=== PATIENT | female | born 2005 | race Caucasian/White ===

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

== ENCOUNTER 2023-10-05 05:48 | Emergency (ER) | payer OTHER, SELFPAY ==
[2023-10-05] VITALS (7 sets, daily range): BP systolic 111–137; BP diastolic 58–82; PULSE 73–86; RESP 16–20; TEMP 36.8; O2SAT 98–100
--- NOTE | ~2023-10-05 | CT_ITS ---
EXAMINATION: CT brain wo con DATE: 10/05/2023 06:37 INDICATION: Headache. TECHNIQUE: Computed tomography (CT) of the head was performed without intravenous contrast. The mA wa s adjusted according to patient size. Iterative reconstruction technique was employed. The dose-lengt h product was 605.33 mGy-cm. COMPARISON: None FINDINGS: There is no intracranial hemorrhage, acute infarction, or abnormal intracranial mass lesion . The ventricles are normal in size. There is mild mucosal thickening in the paranasal sinuses. The o rbits are normal. The mastoid air cells are normal. IMPRESSION: 1. Normal brain. Reviewed, dictated and finalized at location A. IMPRESSION: 1. Normal brain.
--- NOTE | 2023-10-05 06:20 | ED.GENADULT ---
HPI - General Adult General Chief complaint: Unspecified <Pete Mazariegos MD - Last Filed: 10/05/23 07:12> Stated complaint: VALENCIA, nausea, right sided numbess <Pete Mazariegos MD - Last Filed: 10/05/23 07:12> Time Seen by Provider: 10/05/23 06:20 <Pete Mazariegos MD - Last Filed: 10/05/23 07:12> History of Present Illness HPI narrative: This is a 18-year-old female with a history of anxiety and depression presenting to the ED with multiple complaints. Today is the 1st day the patient's school year. She woke up at 4:30 a.m. and felt like her right arm was numb in 3rd 4th and 5th digit. It quickly returned to normal. She then developed a sharp pain over her left eye. It is a rapid sharp stabbing. He does not typically get headaches. She also feels nauseous but has not thrown up. Patient became very scared called her family brought her to the hospital evaluation the patient's symptoms are all rapidly improving although she is still nervous. <Pete Mazariegos MD - Last Filed: 10/05/23 07:12> Related Data Home medications: Home Medications Medication Instructions Recorded Confirmed buspirone 15 mg tablet 7.5 mg PO TID 03/04/22 07/03/23 fluoxetine 20 mg capsule 20 mg PO DAILY 03/04/22 07/03/23 <Pete Mazariegos MD - Last Filed: 10/05/23 07:12> Allergies/adverse reactions: Allergies Allergy/AdvReac Type Severity Reaction Status Date / Time No Known Allergies Allergy Verified 10/05/23 06:02 <Pete Mazariegos MD - Last Filed: 10/05/23 07:12> [facility] Past Medical History Medical History: Medical History Anxiety BMI 29.0-29.9,adult Depression Encounter to establish care No pertinent past medical history SOB (shortness of breath) Wheezing <Pete Mazariegos MD - Last Filed: 10/05/23 07:12> Surgical History Surgical History: Surgical History No pertinent past surgical history <Pete Mazariegos MD - Last Filed: 10/05/23 07:12> Family History Family History: Family History Mother Family history non-contributory <Pete Mazariegos MD - Last Filed: 10/05/23 07:12> Social History Social History: Social History Smoking status: Never smoker Alcohol intake: never Substance use: never Substance use type: does not use Living arrangements: dorm student housing Occupation/Education: student Gender identity (if verbalized by the patient): Female Spiritual care concerns: No <Pete Mazariegos MD - Last Filed: 10/05/23 07:12> Exam Narrative: APPEARANCE: Anxious appearing Head: atraumatic. EYES: EOMI, NOSE: Atraumatic NECK: Trachea midline RESPIRATORY: No increased rate of breathing clear to auscultation CARDIOVASCULAR: Patient's heart rate fluctuates throughout the interview from 80-120 ABDOMINAL: Non-distended MUSCULOSKELETAl: No obvious deformities NEURO: Alert. Cranial nerves 2-12 grossly intact. Sensation light touch, motor function cerebellar function intact for 4 extremities. Gait exam was normal. SKIN:: Warm, dry. Normal color PSYCHIATRIC: Normal affect <Pete Mazariegos MD - Last Filed: 10/05/23 07:12> Course Course Emergency Course: Patient was signed out to me pending labs. Doctors Yair had already spoken with her about the rest of her workup. Labs are generally unremarkable without marked abnormalities. I did assess patient at bedside who verifies understanding and is stable for discharge. Note provided given today is first day of 3rd year of college. <Reema Esteves MD - Last Filed: 10/05/23 07:45> Vital Signs Vital signs: Vital Signs Pulse Rate 86 10/05/23 05:55 Respiratory Rate 17 10/05/23 05:55 Blood Pressure 125/80 10/05/23 05:55 Pulse Oximetry 99 10/05/23 05:55
--- NOTE | 2023-10-05 06:22 | ECG_ITS ---
Test Date: 2023-10-05 06:44:54 Measurements Intervals [place] Rate: 85 P: 42 RI: 156 QRS: 30 QRSD: 97 T: 27 QT: 364 QTc: 434 Interpretive Statements SINUS RHYTHM NONSPECIFIC T-WAVE ABNORMALITY ABNORMAL ECG Electronically Signed On 10-05-2023 11:01:01 CDT by Ahsan Chadwick M.D.
[2023-10-05] MEDS: ACETAMINOPHEN 500 MG TABLET 1000 MG PO (06:41)
[2023-10-05] MEDS: diphenhydrAMINE HCl CAP 25 MG CAPSULE PO (06:42)
[2023-10-05] MEDS: PROCHLORPERAZINE EDISYLATE 10 MG/2 ML VIAL IM (06:43)
--- NOTE | 2023-10-05 06:55 | PC.NURSE ---
Compazine IM shot injected into left thigh, not left deltoid.
[2023-10-05 06:58] LABS: Basophils Absolute Auto 0.1 K/mm3 (0.0-0.1); Basophils Percent Auto 0.9 % (0.2-1.2); Eosinophils Absolute Auto 0.5 K/mm3 (0-0.3); Hematocrit 41.3 % (37.0-47.0); Hemoglobin 13.8 g/dL (12.0-15.0); Immature Granulocyte Absolute 0.01 K/mm3 (0.00-0.031); Immature Granulocyte Percent A 0.1 % (0-0.5); Lymphocytes Absolute Auto 3.42 K/mm3 (0.9-3.2); Lymphocytes Percent Auto 44.3 % (18.3-44.2); Mean Corpuscular HGB Conc 33.4 g/dl (32-36); Mean Corpuscular Hemoglobin 30.2 pg (26-34); Mean Corpuscular Volume 90.4 fl (80-100); Mean Platelet Volume 9.5 fl (7.4-10.4); Monocytes Absolute Auto 0.7 K/mm3 (0.1-0.6); Monocytes Percent Auto 9.6 % (2.6-8.5); Neutrophils Percent Auto 39.1 % (45.5-73.1); Platelet Count Result 260 k/mm3 (150-375); Red Blood Count 4.57 M/mm3 (4.2-5.4); Red Cell Distribution Width 12.5 % (11.5-14.5); White Blood Count 7.7 K/mm3 (4.5-10.0)
[2023-10-05 07:11] LABS: Alanine Aminotransferase 21 U/L (6-35); Albumin Level 4.7 g/dL (3.5-5.1); Alkaline Phosphatase 75 U/L (38-126); Anion Gap 12 mmol/L (4-12); Aspartate Amino Transferase 26 U/L (14-36); Bilirubin,Total 0.4 mg/dL (0.2-1.3); Blood Urea Nitrogen 16 mg/dL (7-17); Calcium 9.6 mg/dL (8.4-10.2); Carbon Dioxide 24 mmol/L (22-30); Chloride 102 mmol/L (98-107); Estimated CRCL calculation 107 ml/min; Estimated Glomerular Filt Rate > 60; Glucose 101 mg/dL (65-110); Potassium 3.7 mmol/L (3.4-5.0); Sodium 138 mmol/L (137-145)
== END 2023-10-05 07:51 | disposition home or self-care (01) ==
PROVIDERS: Emergency Provider Emergency Medicine; PCP Family Medicine
DX: R51.9 Headache, unspecified (principal); F43.9 Reaction to severe stress, unspecified; G56.21 Lesion of ulnar nerve, right upper limb; F41.9 Anxiety disorder, unspecified; F32.A Depression, unspecified
CPT/HCPCS: 36415; 70450; 80053; 85025; 93005; 96372; 99284; A9270; J0780

== ENCOUNTER 2024-02-06 11:51 | Emergency (ER) | payer OTHER, SELFPAY ==
--- NOTE | ~2024-02-06 | XR_ITS ---
EXAMINATION: XR chest 2V DATE: 02/06/2024 13:19 INDICATION: Chronic cough. TECHNIQUE: Frontal and lateral views of the chest were obtained. COMPARISON: None. FINDINGS: There is no pneumonia, pleural effusion, or pneumothorax. The heart size is normal. IMPRESSION: 1. No acute cardiopulmonary disease. Reviewed, dictated and finalized at location A. ATIC DIRECTOR
[2024-02-06 12:07] VITALS: BP 125/71; PULSE 117; RESP 18; TEMP 37; O2SAT 99
--- NOTE | 2024-02-06 13:10 | ED_ITS ---
HPI - URI/Sore Throat General Chief Complaint: Upper Respiratory Infection Stated Complaint: cough Source: patient Mode of arrival: ambulatory Limitations: no limitations History of Present Illness HPI Narrative: 18-year-old female presents to [facility] complaints of intermittent chronic nonproductive cough for the past 6 months. Patient states ?every time I get sick, cough gets worse? patient reports that she saw her primary care provider concerning his chronic cough and was referred to pulmonology for asthma but patient never followed through on referral. Patient denies smoking. Patient denies vaping. Patient reports that she has been taking [id number] TheraFlu and cough drops with minimal relief. Patient reports that she is currently taking her last dose of amoxicillin due to recent strep throat diagnosis. MD elicited complaint: cough Onset (ago): month(s) (6) Consistency: intermittent Able to tolerate fluids by mouth: Yes Exacerbating factors: nothing Relieving factors: nothing Related Data Home Medications ?Medication ?Instructions ?Recorded ?Confirmed ?Last Taken ?Type buspirone 15 mg tablet 7.5 mg PO TID 03/04/22 07/03/23 Unknown History fluoxetine 20 mg capsule 20 mg PO DAILY 03/04/22 07/03/23 Unknown History amoxicillin 875 mg tablet mg 02/06/24 Unknown History cariprazine 1.5 mg capsule mg 02/06/24 Unknown History (Vraylar) Allergies Allergy/AdvReac Type Severity Reaction Status Date / Time No Known Allergies Allergy Verified 02/06/24 12:25 Review of Systems Constitutional: Constitutional: Denies fatigue and Denies fever(s) ENT: Denies nasal congestion and Denies sore throat Respiratory: Respiratory: Denies chest congestion, Reports cough, Denies dyspnea and Denies wheezing Gastrointestinal: Gastrointestinal: Denies diarrhea, Denies nausea and Denies vomiting Genitourinary: Genitourinary: Denies dysuria Musculoskeletal: Musculoskeletal: Denies arthralgias and Denies joint swelling Integumentary/Breasts: Skin/Breast: Denies erythema, Denies rash and Denies skin ulcer Neurologic: Denies headache(s) and Denies focal weakness [facility], [facility] Past Medical History Medical History Wheezing SOB (shortness of breath) BMI 29.0-29.9,adult Depression Anxiety Encounter to establish care No pertinent past medical history Surgical History Surgical History No pertinent past surgical history Family History Family History Mother Family history non-contributory Social History Social History Smoking status: Never smoker Alcohol intake: never Substance use: never Substance use type: does not use Living arrangements: dorm student housing Occupation/Education: student Gender identity (if verbalized by the patient): Female Spiritual care concerns: No Comments At time of signature, I agree with nursing past medical, surgical, social and family history. There is no relevant family history pertinent to the presenting complaint. Exam Const: General: healthy appearing and no acute distress Nutritional Appearance: well nourished Orientation/consciousness: patient oriented x3 Limitations: no limitations HENMT: Head: normal to inspection Ears: external ears normal and TM's normal bilaterally Face/Nose/Sinus: Normal external nose present Face and sinus: normal facial exam Mouth: Yes Normal oral and palatal mucosa present Teeth and gingiva: dentition normal Throat: uvula midline Other: 1+ swelling noted to bilateral tonsils. There is no exudate or peritonsillar abscess no Eyes: Conjunctivae: conjunctivae normal Neck: Neck: normal visual inspection Resp: Effort & Inspection: normal respiratory effort and not labored Auscultation: clear to auscultation bilaterally, no crackles, no rales, no rhonchi and no wheezes Cardio: Rate: regular rate Rhythm: regular rhythm Heart sounds: no m urmurs Skin: General skin exam: normal color Rashes: no rashes Wounds: no wounds Neuro: General: patient oriented x3 Speech: normal speech Gait exam (Neuro): Normal gait present Psych: Affect: normal affect Attitude: cooperative Course Course Level of Care: Express Care Visit Vital Signs Vital signs: Vital Signs Temperature 37.0 C 02/06/24 12:07 Pulse Rate 117 H 02/06/24 12:07 Respiratory Rate 18 02/06/24 12:07 Blood Pressure 125/71 02/06/24 12:07 Pulse Oximetry 99 02/06/24 12:07 Oxygen Delivery Room Air 02/06/24 12:07 Temperature 37.0 C 02/06/24 12:07 Pulse Rate 117 H 02/06/24 12:07 Respiratory Rate 18 02/06/24 12:07 Blood Pressure 125/71 02/06/24 12:07 Pulse Oximetry 99 02/06/24 12:07 Oxygen Delivery Room Air 02/06/24 12:07 MDM - URI/Sore Throat MDM Narrative Medical decision making narrative: Lengthy discussion with patient concerning importance of following through with pulmonology referral as given for PCP. Instructed patient to finish out antibiotic as prescribed her PCP. Educated patient to proceed to the emergency room if symptoms worsen. Discussed negative chest x-ray results with patient. Differential Diagnosis Differential diagnosis: Likely otitis media, sinusitis and viral infection Imaging Data Radiologist's impression: Geeta David 18 F 2005 Allergy/Adv: [place] [address] XRay Report Signed Patient: Geeta David : 2005 MR#: [id number] Age: 18 Acct:[id number] Loc: [facility] ADM Date: 02/06/[address]: Ordering Physician: Randa Almazan APRN Date of Service: 02/06/24 Procedure(s): XR chest 2V Accession Number(s): [id number] cc: Randa Almazan APRN; UNKNOWN,DOCTOR~ EXAMINATION: XR chest 2V DATE: 02/06/2024 13:19 INDICATION: Chronic cough. TECHNIQUE: Frontal and lateral views of the chest were obtained. COMPARISON: None. FINDINGS: There is no pneumonia, pleural effusion, or pneumothorax. The heart size is normal. IMPRESSION: 1. No acute cardiopulmonary disease. Reviewed, dictated and finalized at location A. R OPERATOR Dictated By: Matt Sotelo MD 02/06/24 1322 Signed By: <Electronically signed by Matt Sotelo MD in [place]> 02/06/24 1323 Critical Care Time Critical Care Time Critical Care Time: No Discharge Plan Discharge Clinical Impression: Chronic cough Patient Disposition: Home, Self-Care Condition: Stable Instructions: Chronic Cough (ED) Additional Instructions: Follow-up with primary care provider concerning chronic cough Follow-up with pulmonology as instructed per primary care provider Take benzonatate as needed for cough Proceed to the emergency room if symptoms worsen Patient Language: Welsh Prescriptions: New benzonatate 100 mg capsule 100 mg PO BID PRN (Reason: cough) Qty: 20 0RF No Action amoxicillin 875 mg tablet Vraylar 1.5 mg capsule fluoxetine 20 mg capsule 20 mg PO DAILY buspirone 15 mg tablet 7.5 mg PO TID albuterol sulfate 90 mcg/actuation HFA aerosol inhaler 1 - 2 inh inhalation Q4-6H PRN (Reason: shortness of breath or wheezing) Qty: 8.5 2RF Follow-up/Referrals: UNKNOWN,DOCTOR [Primary Care Provider] - Time of Disposition: 13:30
--- OUTSIDE RECORDS SUMMARY | 2024-02-13 17:09 | XMS_ITS | Continuity of Care Document ---
Author Name [facility] Organization [facility] Care Team Providers Care Model And Dye Person Name Role Phone DOD-MI Unavailable Unavailable Problems Combined list of problems from Department of Defense and Veterans Affairs facilities. It does not include entries that were removed or entered in error. Problem Status Onset Date Problem Type Date of Resolution Comments Source visit for: administrative purpose Inactive Condition DoD visit for: screening exam lipoid disorders Inactive Condition DoD visit for: screening for heavy metal poisoning Inactive Condition [facility] visit for: screening exam iron deficiency anemia Inactive Condition [facility] Outpatient Physician Consultation Inactive Condition DoD strabismus Active Condition DoD upper respiratory infection Inactive Condition DoD cerumen impaction - both ears Inactive Condition DoD dehydration (Na, H2O) Inactive Condition DoD conjunctivitis Active Condition DoD otitis media Active Condition DoD molluscum contagiosum Active Condition [facility] Preventive Medicine New Patient Evaluation Childhood 5-11 Years Inactive Condition DoD light colored bowel movement (acholic stools) Active Condition Recent episode of dysentery (bloody stool). No systemic symptoms at present, no weight loss, no pulmonary illness hx. Discussed watchful waiting vs. work-up at this time with Dr. Esparza (attending). Will continue to watch for up to 2 more weeks, but if not improved, pt. to RTC for further w/u. Considered meds, hepatobilary, pancreatic, congenital, or viral causes. Recent viral illness most likely cause -- if persists would get hepatitis panel, LFTs, GI referral. However, pt. looks healthy at this time.Also discussed with MOP who agrees with plan. DoD dehydration (Na, H2O) Active Condition mild see above DoD gastroenteritis Active Condition FOP counseled on warning signs of worsening condition. Pt appears to be tolerating the condition at this time. Clinical appearance not worrisome for severe dehydration. counseled to encourage PO fluids. To RTER if pt appears to have increased pain, lethargy, decreased activity or feeding or inc vomitting. self-limited course DoD otitis media Inactive Condition Pt with no current bout of OM, but [facility]. Will refer. On exam, both tubes were currently still in place. Follow up as needed. Consult placed in [facility] DoD otitis externa - left ear Active Condition Mild OE. Pt. likes to dunk head in bathtub, which may be source of ionfection. Discussed this and possible etiology and tx. of OE with FOP. Papules c/w very early impetigo. Discussed good hygeine and handwashings. If worsen, can start bactroban, but DoD dermatophytosis tinea corporis Inactive Condition Probably hannah a infxn as it is in diaper region (although not typical area) and has erythematous base with satellite papules, and was made worse by hydrocortisone cream.Will try lotrimin cream for a week. If not improving after that, then RTC for reeval. DoD skin disorders appendage hair follicle folliculitis Active Condition Pt. with recurrent rash on bilateral buttocks. Clinically looks like folliculitis. As bactroban topically worked in past, will try again. Discussed good hygeine with MOP. No severe and pt. not particuallary bothered. Could use oral medication if topical not effective. DoD immunizations reviewed and current Inactive Condition DoD routine history and physical well-baby (28 days - 1 yrs) Inactive Condition DoD diaper rash Inactive Condition I am not sure if this is a candidal rash; mother has tried a variety of hgyn-luq-dzqxgfo remedies with no success. Will Rx nystatin and see if this helps with the rash. DoD exposure to upper respiratory infection Active Condition Offered home care, mom insisted on appt. Appt erroneously bkd for Feb,. Called mom back and gave home care advice after refused in initial call. Teaching on otc decongestant (Pedicare) and alternating tylenol and motrin prn. Also using a vaporizor, DoD impetigo Inactive Condition CHild with rash and fever- -may be mild atypical chicken pox -- however not classic. Child does appear to have impetigo on nose at this time. Will treat for this with oral antibiotics for 10 days. In case is chicken pox, reviewed this illness with [facility] skin: rash [as Sx] Inactive Condition W Frederic FLORES [id number] ACUT$/15 PENDING DoD Need For Vaccination Against Combinations Of Diseases Inactive Condition DoD otitis media right ear Inactive Condition DoD eustachian tube Active Condition DoD cough Inactive Condition Parent to discontinue Clotrimazole. Home care instructions given per Thomas Wheatley for cough. Informed that the fluid in the ear could cause discomfort and may take weeks to a few months to completely clear up. Father voices understanding and agrees t DoD conjunctivitis Inactive Condition Genta micin eye drops, 1 gtt od bid f5d DoD community-acquired pneumonia Inactive Condition CXR showed overall viral impression with interval change from 2 weeks ago with left lingular infiltrate [Dr. stephenson read].Augmentin, 90/kg given for 10 days.Albuterol, 2-4 puffs q4 hrs with Easivent chamber and mask DoD upper respiratory infection acute Inactive Condition DoD otitis media suppurative left ear Inactive Condition DoD conjunctivitis acute Inactive Condition DoD visit for: follow-up exam Inactive Condition DoD Need For Vaccination Against DTP Inactive Condition DoD Need For Vaccination MMR Inactive Condition DoD Need For Vaccination Chickenpox (Active) Inactive Condition DoD Preventive Medicine Established Patient Checkup Child 1-4 Years Inactive Condition Pt is here for school physical. She is doing well and has no complaints or problems. Pt will need to follow up in 1 year for check up and 4 yr immunizations. DoD Medications Combined list of outpatient medications from Department of Defense and Veterans Affairs facilities.Medications provided include 1) outpatient medications from the last 15 months, and 2) patient-reported medications. Medication Details Route Status Patient Instructions Prescription Expires Prescription Number Last Dispense Date Ordering Provider Order Date Order Qty Source ALBUTEROL SULFATE HFA (albuterol sulfate), 90 MCG, HFA AER AD, INHALATION, TEVA [place], 8.5 g CANISTER Active [id number] 2023 8.5 Pharmac y Data Transac tion Service Facilit y BUSPIRONE HCL (buspirone HCl), 5 MG, TABLET, ORAL, UNICHEM PHARMAC, 100 ea. BOTTLE Cancele d [id number] : 2023 0 Pharmac y Data Transac tion Service Facilit y BUSPIRONE HCL (BUSPIRONE HCL), 5MG, TABLET, ORAL, TEVA [place], 100 ea. BOTTLE Cancele d [id number] : 2023 0 Pharmac y Data Transac tion Service Facilit y FLUOXETINE HCL (FLUOXETINE HCL), 20MG, CAPSULE, ORAL, PLIVA, INC, 1000 ea. BOTTLE Cancele d [id number] : 2023 0 Pharmac y Data Transac tion Service Facilit y FLUOXETINE HCL (FLUOXETINE HCL), 20MG, CAPSULE, ORAL, PLIVA, INC, 1000 ea. BOTTLE Active [id number] 2023 90 Pharmac y Data Transac tion Service Facilit y Allergies, Adverse Reactions, Alerts Combined list of allergies from Department of Defense and Veterans Affairs facilities. It does not include entries that were removed or entered in error. Substance Category Reaction Severity Reaction type Status Date Reported Comments Source NO OUTPUT FOR NCID [id number] Drug allergy (disorder) active 10/09/2006 DoD Immunizations Combined list of available immunizations from the Department of Defense and Veterans Affairs facilities. Immunization Series Date Given Administered By Site Reaction Lot Number CVX Code Drug Product Trainer Status Comments Source meningococcal oligosacchari de (MCV4O) 2020 [facility] Arm [id number] 136 GlaxoSmithKli ne complet ed meningoco ccal oligosacc haride (MCV4O) 08/09/20 Given Ambulat ory Pharmac y Human Papillomaviru s 9-valent vaccine 2020 [facility] Arm [id number] Merck & Company Inc complet ed Human Papilloma virus 9-valent vaccine 08/09/20 Given Ambulat ory Pharmac y Human Papillomaviru s 9-valent vaccine 2020 [id number] 165 Merck & Company Inc complet ed Human Papilloma virus 9-valent vaccine 08/09/20 Given Ambulat ory Pharmac y meningococcal oligosacchari de (MCV4O) 2020 [id number] 136 GlaxoSmithKli ne complet ed meningoco ccal oligosacc haride (MCV4O) 08/09/20 Given Ambulat ory Pharmac y meningococcal oligosacchari de (groups A, C, Y and W-135) diphtheria toxoid conjugate vaccine (MCV4O) 1 2020 Unknown, Provider [id number] 136 [employer] (SKB) complet ed meningoco ccal oligosacc haride (groups A, C, Y and W-135) diphtheri a toxoid conjugate vaccine (MCV4O) DoD Human Papillomaviru s 9-valent vaccine 1 2020 Unknown, Provider [id number] 165 Merck (MSD) complet ed Human Papilloma virus 9-valent vaccine DoD influenza, live, intranasal,qu adrivalent 2015 [id number] Medimmune Inc comple t ed influenza , live, intranasa l,quadriv alent 03/23/15 Given Ambulat ory Pharmac y influenza, live, intranasal,qu adrivalent 2015 [id number] Medimmune Inc comple t ed influenza , live, intranasa l,quadriv alent 03/23/15 Given Ambulat ory Pharmac y influenza, live, intranasal, quadrivalent 1 2015 Unknown, Provider [id number] [employer] (MED) complet ed influenza , live, intranasa l, quadrival ent DoD tetanus, diphtheria, acellular pertu is 2014 Juan Alberto Arm [id number] 115 GlaxoSmithKli dc complet ed tetanus, diphtheri a, acellular pertussis 08/23/14 Given Ambulat ory Pharmac y meningococcal C conjugate vaccine 2014 Mark ribeiro Arm [id number] sanofi pasteur complet ed meningoco ccal C conjugate vaccine 08/23/14 Given Ambulat ory Pharmac y meningococcal A,C,Y,W-135 (MCV4P) 2014 TRANSCR IBED 114 complet ed meningoco ccal A,C,Y,W-1 35 (MCV4P) 08/23/14 Given Ambulat ory Pharmac y tetanus, diphtheria, acellular pertu is 2014 TRANSCR IBED 115 complet ed tetanus, diphtheri a, acellular pertussis 08/23/14 Given Ambulat ory Pharmac y meningococcal A,C,Y,W-135 (MCV4P) 2014 TRANSCR IBED 114 complet ed meningoco ccal A,C,Y,W-1 35 (MCV4P) 08/23/14 Given Ambulat ory Pharmac y meningococcal C conjugate vaccine 1 2014 NATHALIE ROSE [id number] Sanofi Pasteur (PMC) complet ed meningoco ccal C conjugate vaccine DoD meningococcal polysaccharid e (groups A, C, Y and W-135) diphtheria toxoid conjugate vaccine (MCV4P) 1 2014 Unknown, Provider 114 Transcribed (TRS) complet ed meningoco ccal polysacch aride (groups A, C, Y and W-135) diphtheri a toxoid conjugate vaccine (MCV4P) DoD tetanus toxoid, reduced diphtheria toxoid, and acellular pertu is vaccine, adsorbed 1 2014 NATHALIE ROSE [id number] [address] [place] [address] (SKB) complet ed tetanus toxoid, reduced diphtheri a toxoid, and acellular pertussis vaccine, adsorbed DoD tuberculin purified protein derivative 2008 zzRig ht Arm [id number] 96 Unknown complet ed Patient Tolerance : Negative Ambulat ory Pharmac y tuberculin purified protein derivative 2008 TRANSCR IBED 96 complet ed tuberculi n purified protein derivativ e 10/24/08 Given Ambulat ory Pharmac y tuberculin skin test; purified protein derivative solution, intradermal 0 2008 JUAN ODONNELL [id number] 96 Other (OTH) complet ed tuberculi n skin test; purified protein derivativ e solution, intraderm al DoD Hep A, pediatric, unspecified formul 2008 TRANSCR IBED 31 complet ed Hep A, pediatric , unspecifi ed formul 10/17/08 Given Ambulat ory Pharmac y Hep A, ped/adol, 2 dose 2008 zzRig ht Arm [id number] 83 Unknown complet ed Hep A, ped/adol, 2 dose 10/17/08 Given Ambulat ory Pharmac y tuberculin purified protein derivative 2008 zzLef t Arm [id number] 96 Unknown complet ed tuberculi n purified protein derivativ e 10/17/08 Given Ambulat ory Pharmac y Hep A, pediatric, unspecified formul 2008 TRANSCR IBED 31 complet ed Hep A, pediatric , unspecifi ed formul 10/17/08 Given Ambulat ory Pharmac y hepatitis A vaccine, pediatric dosage, unspecified formulation 2 2008 Unknown, Provider 31 Transcribed (TRS) complet ed hepatitis A vaccine, pediatric dosage, unspecifi ed formulati on DoD hepatitis A vaccine, pediatric/ado lescent dosage, 2 dose schedule 2 2008 Unknown, Provider [id number] 83 Other (OTH) complet ed hepatitis A vaccine, pediatric /adolesce nt dosage, 2 dose schedule DoD tuberculin skin test; purified protein derivative solution, intradermal 0 2008 Unknown, Provider [id number] 96 Other (OTH) complet ed tuberculi n skin test; purified protein derivativ e solution, intraderm al DoD varicella virus vaccine 2007 Transcr ibed 21 complet ed varicella virus vaccine 09/22/07 Given Ambulat ory Pharmac y measles/mumps /rubella virus vaccine 2007 Transcr ibed 03 complet ed measles/m umps/rube lla virus vaccine 09/22/07 Given Ambulat ory Pharmac y poliovirus vaccine, inactivated 2007 Transcr ibed 10 complet ed polioviru s vaccine, inactivat ed 09/22/07 Given Ambulat ory Pharmac y DTaP 2007 Transcr ibed 20 complet ed DTaP 09/22/07 Given Ambulat ory Pharmac y varicella virus vaccine 2007 TRANSCR IBED 21 complet ed varicella virus vaccine 09/22/07 Given Ambulat ory Pharmac y DTaP 2007 TRANSCR IBED 20 GlaxoSmithKli ne complet ed DTaP 09/22/07 Given Ambulat ory Pharmac y measles/mumps /rubella virus vaccine 2007 TRANSCR IBED 03 complet ed measles/m umps/rube lla virus vaccine 09/22/07 Given Ambulat ory Pharmac y poliovirus vaccine, inactivated 2007 TRANSCR IBED 10 complet ed polioviru s vaccine, inactivat ed 09/22/07 Given Ambulat ory Pharmac y measles, mumps and rubella virus vaccine 2 2007 Unknown, Provider Transcr ibed 03 Transcribed (TRS) complet ed measles, mumps and rubella virus vaccine DoD poliovirus vaccine, inactivated 4 2007 Unknown, Provider Transcr ibed 10 Transcribed (TRS) complet ed polioviru s vaccine, inactivat ed DoD diphtheria, tetanus toxoids and acellular pertu is vaccine 5 2007 Unknown, Provider Transcr ibed 20 Transcribed (TRS) complet ed diphtheri a, tetanus toxoids and acellular pertussis vaccine DoD varicella virus vaccine 2 2007 Unknown, Provider Transcr ibed 21 Transcribed (TRS) complet ed varicella virus vaccine DoD influenza virus vaccine,split 2006 zzLef t Thigh [id number] 15 sanofi pasteur complet ed influenza virus vaccine,s plit 02/17/06 Given Ambulat ory Pharmac y Hep A, pediatric, unspecified formul 2006 zzRig ht Thigh [id number] 31 GlaxoSmithKli ne complet ed Hep A, pediatric , unspecifi ed formul 02/17/06 Given Ambulat ory Pharmac y influenza virus vaccine, unspecified 2006 Transcr ibed 88 complet ed influenza virus vaccine, unspecifi ed 02/17/06 Given Ambulat ory Pharmac y Hep A, ped/adol, 2 dose 2006 Transcr ibed 83 complet ed Hep A, ped/adol, 2 dose 02/17/06 Given Ambulat ory Pharmac y Hep A, pediatric, unspecified formul 2006 [id number] 31 GlaxoSmithKli ne complet ed Hep A, pediatric , unspecifi ed formul 02/17/06 Given Ambulat ory Pharmac y influenza virus vaccine,split 2006 [id number] 15 sanofi pasteur complet ed influenza virus vaccine,s plit 02/17/06 Given Ambulat ory Pharmac y influenza virus vaccine, split virus (incl. purified surface antigen)-reti red CODE 1 2006 Unknown, Provider [id number] 15 Sanofi Pasteur (PMC) complet ed influenza virus vaccine, split virus (incl. purified surface antigen)- retired CODE DoD hepatitis A vaccine, pediatric dosage, unspecified formulation 1 2006 Unknown, Provider [id number] 31 [employer] (SKB) complet ed hepatitis A vaccine, pediatric dosage, unspecifi ed formulati on DoD hepatitis A vaccine, pediatric/ado lescent dosage, 2 dose schedule 1 2006 Unknown, Provider Transcr ibed 83 Transcribed (TRS) complet ed hepatitis A vaccine, pediatric /adolesce nt dosage, 2 dose schedule DoD influenza virus vaccine, unspecified formulation 3 2006 Unknown, Provider Transcr ibed 88 Transcribed (TRS) complet ed influenza virus vaccine, unspecifi ed formulati on DoD haemophilus b conj (PRP-OMP) vaccine 2004 zzRig ht Thigh [id number] 49 Merck & Company Inc complet ed haemophil us b conj (PRP-OMP) vaccine 12/04/04 Given Ambulat ory Pharmac y Hib, unspecified formulation 2004 Transcr ibed 17 complet ed Hib, unspecifi ed formulati on 12/04/04 Given Ambulat ory Pharmac y DTaP 2004 Transcr ibed 20 complet ed DTaP 12/04/04 Given Ambulat ory Pharmac y haemophilus b conj (PRP-OMP) vaccine 2004 [id number] 49 Merck & Company Inc complet ed haemophil us b conj (PRP-OMP) vaccine 12/04/04 Given Ambulat ory Pharmac y DTaP 2004 [id number] 20 GlaxoSmithKli ne complet ed DTaP 12/04/04 Given Ambulat ory Pharmac y Haemophilus influenzae type b vaccine, conjugate unspecified formulation 3 2004 Unknown, Provider Transcr ibed 17 Transcribed (TRS) complet ed Haemophil us influenza e type b vaccine, conjugate unspecifi ed formulati on DoD diphtheria, tetanus toxoids and acellular pertu is vaccine 4 2004 Unknown, Provider Transcr ibed 20 Transcribed (TRS) complet ed diphtheri a, tetanus toxoids and acellular pertussis vaccine DoD Haemophilus influenzae type b vaccine, PRP-OMP conjugate 3 2004 Unknown, Provider [id number] 49 Merck (MSD) complet ed Haemophil us influenza e type b vaccine, PRP-OMP conjugate DoD pneumococcal 7-valent vaccine 2004 Transcr ibed 100 complet ed pneumococ teresa 7-valent vaccine 07/24/04 Given Ambulat ory Pharmac y varicella virus vaccine 2004 Transcr ibed 21 complet ed varicella virus vaccine 07/24/04 Given Ambulat ory Pharmac y measles/mumps /rubella virus vaccine 2004 Transcr ibed 03 complet ed measles/m umps/rube lla virus vaccine 07/24/04 Given Ambulat ory Pharmac y varicella virus vaccine 2004 [id number] 21 Merck & Company Inc complet ed varicella virus vaccine 07/24/04 Given Ambulat ory Pharmac y pneumococcal 7-valent vaccine 2004 [id number] [employer] complet ed pneumococ teresa 7-valent vaccine 07/24/04 Given Ambulat ory Pharmac y measles, mumps and rubella virus vaccine 1 2004 Unknown, Provider Transcr ibed 03 Transcribed (TRS) complet ed measles, mumps and rubella virus vaccine DoD varicella virus vaccine 1 2004 Unknown, Provider Transcr ibed 21 Transcribed (TRS) complet ed varicella virus vaccine DoD pneumococcal conjugate vaccine, 7 valent 4 2004 Unknown, Provider Transcr ibed 100 Transcribed (TRS) complet ed pneumococ teresa conjugate vaccine, 7 valent DoD influenza virus vaccine,split 2004 zzLef t Thigh [id number] 15 sanofi pasteur complet ed influenza virus vaccine,s plit 03/12/04 Given Ambulat ory Pharmac y pneumococcal 7-valent vaccine 2004 Transcr ibed 100 complet ed pneumococ teresa 7-valent vaccine 03/12/04 Given Ambulat ory Pharmac y poliovirus vaccine, inactivated 2004 Transcr ibed 10 complet ed polioviru s vaccine, inactivat ed 03/12/04 Given Ambulat ory Pharmac y influenza virus vaccine, unspecified 2004 Transcr ibed 88 complet ed influenza virus vaccine, unspecifi ed 03/12/04 Given Ambulat ory Pharmac y hepatitis B pediatric/ado lescent 2004 Transcr ibed 08 complet ed hepatitis B pediatric /adolesce nt 03/12/04 Given Ambulat ory Pharmac y DTaP 2004 Transcr ibed 20 complet ed DTaP 03/12/04 Given Ambulat ory Pharmac y DTaP-hepatiti s B and poliovirus vaccine 2004 zzLef t Thigh [id number] 110 GlaxoSmithKli ne complet ed DTaP-hepa titis B and polioviru s vaccine 03/12/04 Given Ambulat ory Pharmac y DTaP-hepatiti s B and poliovirus vaccine 2004 [id number] 0AA 110 GlaxoSmithKli ne complet ed DTaP-hepa titis B and polioviru s vaccine 03/12/04 Given Ambulat ory Pharmac y pneumococcal 7-valent vaccine 2004 [id number] 100 [employer] complet ed pneumococ teresa 7-valent vaccine 03/12/04 Given Ambulat ory Pharmac y DTaP-hepatiti s B and poliovirus vaccine 2004 [id number] 0AA 110 GlaxoSmithKli ne complet ed DTaP-hepa titis B and polioviru s vaccine 03/12/04 Given Ambulat ory Pharmac y DTaP-hepatiti s B and poliovirus vaccine 2004 [id number] 0AA 110 GlaxoSmithKli ne complet ed DTaP-hepa titis B and polioviru s vaccine 03/12/04 Given Ambulat ory Pharmac y influenza virus vaccine,split 2004 [id number] 15 sanofi pasteur complet ed influenza virus vaccine,s plit 03/12/04 Given Ambulat ory Pharmac y hepatitis B vaccine, pediatric or pediatric/ado lescent dosage 3 2004 Unknown, Provider Transcr ibed 08 Transcribed (TRS) complet ed hepatitis B vaccine, pediatric or pediatric /adolesce nt dosage DoD poliovirus vaccine, inactivated 3 2004 Unknown, Provider Transcr ibed 10 Transcribed (TRS) complet ed polioviru s vaccine, inactivat ed DoD influenza virus vaccine, split virus (incl. purified surface antigen)-reti red CODE 1 2004 Unknown, Provider [id number] 15 Sanofi Pasteur (PMC) complet ed influenza virus vaccine, split virus (incl. purified surface antigen)- retired CODE DoD diphtheria, tetanus toxoids and acellular pertu is vaccine 3 2004 Unknown, Provider Transcr ibed 20 Transcribed (TRS) complet ed diphtheri a, tetanus toxoids and acellular pertussis vaccine DoD influenza virus vaccine, unspecified formulation 2 2004 Unknown, Provider Transcr ibed 88 Transcribed (TRS) complet ed influenza virus vaccine, unspecifi ed formulati on DoD pneumococcal conjugate vaccine, 7 valent 3 2004 Unknown, Provider Transcr ibed 100 Transcribed (TRS) complet ed pneumococ teresa conjugate vaccine, 7 valent DoD DTaP-hepatiti s B and poliovirus vaccine 3 2004 Unknown, Provider [id number] 110 [employer] (SKB) complet ed DTaP-hepa titis B and polioviru s vaccine DoD influenza virus vaccine,split 2003 zzLef t Thigh [id number] 15 sanofi pasteur complet ed influenza virus vaccine,s plit 01/24/04 Given Ambulat ory Pharmac y influenza virus vaccine, unspecified 2003 Transcr ibed 88 complet ed influenza virus vaccine, unspecifi ed 01/24/04 Given Ambulat ory Pharmac y influenza virus vaccine,split 2003 [id number] 15 sanofi pasteur complet ed influenza virus vaccine,s plit 01/24/04 Given Ambulat ory Pharmac y influenza virus vaccine, split virus (incl. purified surface antigen)-reti red CODE 1 2003 Unknown, Provider [id number] 15 Sanofi Pasteur (PMC) complet ed influenza virus vaccine, split virus (incl. purified surface antigen)- retired CODE DoD influenza virus vaccine, unspecified formulation 1 2003 Unknown, Provider Transcr ibed 88 Transcribed (TRS) complet ed influenza virus vaccine, unspecifi ed formulati on DoD haemophilus b conj (PRP-OMP) vaccine 2003 zzRig ht Thigh [id number] 49 Merck & Company Inc complet ed haemophil us b conj (PRP-OMP) vaccine 03 Given Ambulat ory Pharmac y DTaP-hepatiti s B and poliovirus vaccine 2003 zzLef t Thigh [id number] 110 GlaxoSmithKli ne complet ed DTaP-hepa titis B and polioviru s vaccine 03 Given Ambulat ory Pharmac y pneumococcal 7-valent vaccine 2003 Transcr ibed 100 complet ed pneumococ teresa 7-valent vaccine 03 Given Ambulat ory Pharmac y poliovirus vaccine, inactivated 2003 Transcr ibed 10 complet ed polioviru s vaccine, inactivat ed 03 Given Ambulat ory Pharmac y Hib, unspecified formulation 2003 Transcr ibed 17 complet ed Hib, unspecifi ed formulati on 03 Given Ambulat ory Pharmac y hepatitis B pediatric/ado lescent 2003 Transcr ibed 08 complet ed hepatitis B pediatric /adolesce nt 03 Given Ambulat ory Pharmac y DTaP 2003 Transcr ibed 20 complet ed DTaP 03 Given Ambulat ory Pharmac y DTaP-hepatiti s B and poliovirus vaccine 2003 [id number] 110 GlaxoSmithKli ne complet ed DTaP-hepa titis B and polioviru s vaccine 03 Given Ambulat ory Pharmac y haemophilus b conj (PRP-OMP) vaccine 2003 [id number] 49 [employer] complet ed haemophil us b conj (PRP-OMP) vaccine 03 Given Ambulat ory Pharmac y pneumococcal 7-valent vaccine 2003 [id number] 100 [employer] complet ed pneumococ teresa 7-valent vaccine 03 Given Ambulat ory Pharmac y DTaP-hepatiti s B and poliovirus vaccine 2003 [id number] 3ba 110 GlaxoSmithKli ne complet ed DTaP-hepa titis B and polioviru s vaccine 03 Given Ambulat ory Pharmac y DTaP-hepatiti s B and poliovirus vaccine 2003 [id number] 110 GlaxoSmithKli ne complet ed DTaP-hepa titis B and polioviru s vaccine 03 Given Ambulat ory Pharmac y hepatitis B vaccine, pediatric or pediatric/ado lescent dosage 2 2003 Unknown, Provider Transcr ibed 08 Transcribed (TRS) complet ed hepatitis B vaccine, pediatric or pediatric /adolesce nt dosage DoD poliovirus vaccine, inactivated 2 2003 Unknown, Provider Transcr ibed 10 Transcribed (TRS) complet ed polioviru s vaccine, inactivat ed DoD Haemophilus influenzae type b vaccine, conjugate unspecified formulation 2 2003 Unknown, Provider Transcr ibed 17 Transcribed (TRS) complet ed Haemophil us influenza e type b vaccine, conjugate unspecifi ed formulati on DoD diphtheria, tetanus toxoids and acellular pertu is vaccine 2 2003 Unknown, Provider Transcr ibed 20 Transcribed (TRS) complet ed diphtheri a, tetanus toxoids and acellular pertussis vaccine DoD Haemophilus influenzae type b vaccine, PRP-OMP conjugate 2 2003 Unknown, Provider [id number] Merck (MSD) complet ed Haemophil us influenza e type b vaccine, PRP-OMP conjugate DoD pneumococcal conjugate vaccine, 7 valent 2 2003 Unknown, Provider Transcr ibed 100 Transcribed (TRS) complet ed pneumococ teresa conjugate vaccine, 7 valent DoD DTaP-hepatiti s B and poliovirus vaccine 2 2003 Unknown, Provider [id number] 110 [facility] (SKB) complet ed DTaP-hepa titis B and polioviru s vaccine DoD haemophilus b conj (PRP-OMP) vaccine 2003 zzRig ht Thigh 1152n 49 [employer]ck [employer] Inc complet ed haemophil us b conj (PRP-OMP) vaccine 03 Given Ambulat ory Pharmac y DTaP-hepatiti s B and poliovirus vaccine 2003 zzLef t Thigh [id number] 110 GlaxoSmithK[employer] ne complet ed DTaP-hepa titis B and polioviru s vaccine 03 Given Ambulat ory Pharmac y pneumococcal 7-valent vaccine 2003 Transcr ibed 100 complet ed pneumococ teresa 7-valent vaccine 03 Given Ambulat ory Pharmac y poliovirus vaccine, inactivated 2003 Transcr ibed 10 complet ed polioviru s vaccine, inactivat ed 03 Given Ambulat ory Pharmac y Hib, unspecified formulation 2003 Transcr ibed 17 complet ed Hib, unspecifi ed formulati on 03 Given Ambulat ory Pharmac y hepatitis B pediatric/ado lescent 2003 Transcr ibed 08 complet ed hepatitis B pediatric /adolesce nt 03 Given Ambulat ory Pharmac y DTaP 2003 Transcr ibed 20 complet ed DTaP 03 Given Ambulat ory Pharmac y DTaP-hepatiti s B and poliovirus vaccine 2003 [id number] 110 GlaxoSmithK[employer] ne complet ed DTaP-hepa titis B and polioviru s vaccine 03 Given Ambulat ory Pharmac y pneumococcal 7-valent vaccine 2003 [id number] 100 [employer] complet ed pneumococ teresa 7-valent vaccine 03 Given Ambulat ory Pharmac y DTaP-hepatiti s B and poliovirus vaccine 2003 [id number] 110 GlaxoSmithKli ne complet ed DTaP-hepa titis B and polioviru s vaccine 03 Given Ambulat ory Pharmac y DTaP-hepatiti s B and poliovirus vaccine 2003 [id number] 110 GlaxoSmithK[employer] ne complet ed DTaP-hepa titis B and polioviru s vaccine 03 Given Ambulat ory Pharmac y haemophilus b conj (PRP-OMP) vaccine 2003 [id number] 49 Merck [employer] Inc complet ed haemophil us b conj (PRP-OMP) vaccine 03 Given Ambulat ory Pharmac y hepatitis B vaccine, pediatric or pediatric/ado lescent dosage 1 2003 Unknown, Provider Transcr ibed 08 Transcribed (TRS) complet ed hepatitis B vaccine, pediatric or pediatric /adolesce nt dosage DoD poliovirus vaccine, inactivated 1 2003 Unknown, Provider Transcr ibed 10 Transcribed (TRS) complet ed polioviru s vaccine, inactivat ed DoD Haemophilus influenzae type b vaccine, conjugate unspecified formulation 1 2003 Unknown, Provider Transcr ibed 17 Transcribed (TRS) complet ed Haemophil us influenza e type b vaccine, conjugate unspecifi ed formulati on DoD diphtheria, tetanus toxoids and acellular pertu is vaccine 2003 Unknown, Provider Transcr ibed 20 Transcribed (TRS) complet ed diphtheri a, tetanus toxoids and acellular pertussis vaccine DoD Haemophilus influenzae type b vaccine, PRP-OMP conjugate 2003 Unknown, Provider [id number] 49 Merck (MSD) complet ed Haemophil us influenza e type b vaccine, PRP-OMP conjugate DoD pneumococcal conjugate vaccine, 7 valent 1 2003 Unknown, Provider Transcr ibed 100 Transcribed (TRS) complet ed pneumococ teresa conjugate vaccine, 7 valent DoD DTaP-hepatiti s B and poliovirus vaccine 2003 Unknown, Provider [id number] 110 [employer] (SKB) complet ed DTaP-hepa titis B and polioviru s vaccine DoD Vital Signs Combined list of inpatient and outpatient Vital Signs from Department of Defense and Veterans Affairs, ranging from 12 months to all on record, depending upon the facility. Vital Sign Value Date Comments Source No data available for this section Ambulatory Pharmacy Encounters Combined list of: 1) Encounters from Department of Veterans Affairs facilities going back up to thelast 18 months. 2) Encounters from the Department of Defense facilities going back up to 280 months. Location Location Details Encounter Type Encounter Number Reason For Visit Attending Provider ADM Date DC Date Status Disposition Source [address] [place] [address] [employer] ([facility]Ped iatrics) OUTPATIENT [id number] 12 mo OSCAR PRINCE 07/24 Released w/o Limitations [address] [place] [address] [employer] ([facility])(P ediatri cs) [address] [place] [address] [employer] ([facility])(Ped iatrics) OUTPATIENT [id number] er f/u fever OSCAR PRINCE 09/09 Released w/o Limitations [address] [place] [address] [employer] ([facility])(P ediatri cs) [address] [place] [address] [employer] ([facility])(Ped iatrics) OUTPATIENT [id number] pink eye OSCAR PRINCE 09/26 Released w/o Limitations [address] [place] [address] [employer] ([facility])(P ediatri cs) [address] [place] [address] [employer] ([facility])(Ped iatrics) OUTPATIENT [id number] pink eye NATO TREVIÑO 10/02 Released w/o Limitations [address] [place] [address] [employer] ([facility])(P ediatri cs) [address] [place] [address] [employer] ([facility])(Ped iatrics) TELE CONSULT [id number] 1yo pt with severe congest ion x 2 wks/no fever JASON CAMPBELL 10/[address] [place] [address] [employer] ([facility])(P ediatri cs) [address] [place] [address] [employer] ([facility])(Ped iatrics) OUTPATIENT [id number] congest ion >1 week, getting worse HARI SANABRIA 10/23 Released w/o Limitations [address] [place] [address] [employer] ([facility])(P ediatri cs) [address] [place] [address] [employer] ([facility])(Ped iatrics) TELE CONSULT [id number] Spilled some medicin e/HARI Mariano 10/[address] [place] [address] [employer] ([facility])(P ediatri cs) [address] [place] [address] [employer] ([facility])(Ped iatrics) OUTPATIENT [id number] congest ion/hx pneumon ia HARI SANABRIA 11/11 Released w/o Limitations [address] [place] [address] [employer] ([facility])(P ediatri cs) [facility] Medical [facility] [employer] ([facility])(Ped iatrics) TELE CONSULT [id number] yeast infecti on KLAUS WOODS 11/13 [employer] ([facility])(P ediatri cs) [address] [place] [address] [employer] ([facility])(Ped iatrics) TELE CONSULT [id number] Lino albrecht about meds for yeast infecti on/ KLAUS Talley 11/19 [facility] [employer] ([facility])(P ediatri cs) [facility] Medical [facility] [employer] ([facility])(Ped iatrics) OUTPATIENT [id number] poss ear infecti on LUC PATEL 12/04 Released w/o Limitations [employer] ([facility])(P ediatri cs) [address] [place] [address] [employer] ([facility])(Ped iatrics) OUTPATIENT [id number] immuniz ation NESTOR RITTER. 12/04 Released w/o Limitations [employer] ([facility])(P ediatri cs) [address] [place] [address] [employer] ([facility])(Ped iatrics) TELE CONSULT [id number] Would like a call back/ MAC Coleman 12/20 [facility] Medical Group [employer] ([facility])(P ediatri cs) [address] [place] [address] [employer] ([facility])(Ped iatrics) OUTPATIENT [id number] immuniz ation (copy) DONA CRUZ 01/22 Released w/o Limitations [employer] ([facility])(P ediatri cs) [facility] Medical [facility] [employer] ([facility])(Ped iatrics) TELE CONSULT [id number] patient with bacteri al rash?? KLAUS WOODS 01/29 [employer] ([facility])(P ediatri cs) [facility] [employer] ([facility])(Ped iatrics) OUTPATIENT [id number] rash on face and private area/ne eds to be screene d for chicken pox first PIOTR BURNETT 01/29 Released w/o Limitations [employer] ([facility])(P ediatri cs) [facility] [employer] ([facility])(Ped iatrics) TELE CONSULT [id number] cold x 24 hrs JASON GARCIA J 03/13 [facility] [employer] ([facility])(P ediatri cs) [facility] [employer] ([facility])(Ped iatrics) TELE CONSULT [id number] needs advice KLAUS WOODS 04/[address] [place] [address] [employer] ([facility])(P ediatri cs) [facility] Medical [facility] [employer] ([facility])(Ped iatrics) TELE CONSULT [id number] - after hrs phone interac LUC Ortega 07/04 [facility] [employer] ([facility])(P ediatri cs) [facility] [employer] ([facility])(Ped iatrics) OUTPATIENT [id number] 1 year well HARI SANABRIA 07/15 Released w/o Limitations [address] [place] [address] [employer] ([facility])(P ediatri cs) [facility] Medical [facility] [employer] ([facility])(Ped iatrics) TELE CONSULT [id number] diaper rash JASON GARCIA 07/[address] [place] [address] [employer] ([facility])(P ediatri cs) [facility] Medical [facility] [employer] ([facility])(Ped iatrics) OUTPATIENT [id number] diaper rash HARI SANABRIA 07/29 Released w/o Limitations [facility] [employer] ([facility])(P ediatri cs) [facility] [employer] ([facility])(Sco tt [facility] Fam Res Tm Green) OUTPATIENT [id number] JANE Nagel 01/06 Released w/o Limitations [facility] [employer] ([facility])(S cott [facility] Fam Res Tm Green) [facility] [employer] ([facility])(Sco tt [facility] FAMRES Tm Blue) OUTPATIENT [id number] ear infecti on DONTAE URBINA 02/17 Released w/o Limitations [facility] [employer] ([facility])(S cott [facility] FAMRES Tm Blue) [facility] [employer] ([facility])(Sco tt [facility] FAMRES Tm Blue) OUTPATIENT [id number] [facility] [place] [place] LEANDRO Zhu 03/26 Released w/o Limitations [employer] ([facility])(S cott [facility] FAMRES Tm Blue) [employer] ([facility])(Sco tt [facility] Fam Res Tm Green) OUTPATIENT [id number] 3Y FE Blood in Stool C/O Diarrhe a H#[phone] ADRIANO STEARNS 07/24 Released w/o Limitations [employer] ([facility])(S cott [facility] Fam Res Tm Green) [address] [place] [address] Group [employer] LUZFrederic ([facility])(Sco tt [facility] FAMRES Tm Blue) OUTPATIENT [id number] constip DONTAE Radford 08/11 Released w/o Limitations [facility] Group [employer] ([facility])(S cott [facility] FAMRES Tm Blue) [address] [place] [address] Group [employer] ([facility])(Sco tt [facility] FAMRES Tm Blue) OUTPATIENT [id number] 3Y Wellnes s Exam H# LEANDRO [employer] 10/12 Released w/o Limitations [address] [place] [address] Group [employer] LUZFrederic ([facility])(S [facility] FAMRES Tm Blue) [place] [place] OUTPATIENT [id number] [facility] physica l SERVICEALCIDES 10/11 Released w/o Limitations [place] [facility] [place]) [place] OUTPATIENT [id number] [facility] 07/13 [facility]ased w/o Limitations [place]([facility]w Pract[facility] - [place]) [place] [facility]) OUTPATIENT [id number] pink eye NICOL FRANCIS([place]) 11/05 Released w/o Limitations [place]([facility]w Practic [facility] - [place]) [facility] [place] OUTPATIENT [id number] fever/v omiting CLAUDIA CHENG 09/12 Released w/o Limitations [facility]( [facility] [place] [facility]) [facility] [place] TELE CONSULT [id number] iv fluids BASILIA JURADO 09/13 [facility]( [facility] [place] [facility]) [facility]) OUTPATIENT [id number] fever,c ongesti on sore throat JANICE ELLIOTTSARMAD Aragon 04/06 Released w/o Limitations [facility]( [facility] Team 1) [facility] [place]) TELE CONSULT [id number] Notes Entered by: Evan NICHOLS 25 May 2012 1138 ------- ------- ------- ------- -- Request for Referra l. ANTHONY NICHOLS 05/25 [facility] [place] [facility] [place] TELE CONSULT [id number] Notes Entered by: Evan NICHOLS 09 Jun 2012 1514 ------- ------- ------- ------- -- Referra l Request ANTHONY NICHOLS 06/09 [facility]( [facility] [place] [facility]) [facility] [place]) TELE CONSULT [id number] Notes Entered by: Ramírez PERKINS 26 Jul 2012 1526 ------- ------- ------- ------- -- CLR: JOHNY KASPER / Karl Young MD - DOS: 013 ANTHONY NICHOLS 07/26 [facility]( [facility] [place] [facility]) [facility] [place] T[facility] OUTPATIENT [id number] 7 year well; school physica l JOSE DEVLIN 10/13 Released w/o Limitations [facility](P [place] T1) [facility](Immuniz ation [place]) OUTPATIENT [id number] Notes Entered by: SHWETHA KEENE 13 Oct 2012 1152 ------- ------- ------- ------- -- Transcr iptMERCY Mccormack 10/13 Released w/o Limitations [facility](Imm unizati on [place]) [facility](P [place] T2) OUTPATIENT [id number] FEVER AND SORE THROAT X1DAY RAMO AYOUB Bandar 07/14 Released w/o Limitations [facility](MHP [place] T2) [facility] h(P [place] T2) OUTPATIENT [id number] annual check-u p MICHELLE WEBER 07/31 Released w/o Limitations [facility](P [place] T2) [facility] h(Immuniz ation [place]) OUTPATIENT [id number] Notes Entered by: NATHALIE SHAIKH 23 Aug 2014 1450 ------- ------- ------- ------- -- David Dyson SHAWN R 08/23 Released w/o Limitations [facility](Imm unizati on [place]) [facility](PMHP TPC VB T1) OUTPATIENT [id number] RASH ON FACE X 3 DAYS ALMA LUONG 12/23 Released w/o Limitations [facility](PMH P TPC VB T1) [employer] [facility]AUL[employer]U ([facility])(Sco tt [facility] Fam Res Tm Red) OUTPATIENT [id number] school physica l ASHLEY THOMPSON 03/15 Released w/o Limitations [employer] ([facility])(S cott [facility] Fam Res Tm Red) [employer] ([facility])(Sco tt [facility] Fam Res Tm Red) OUTPATIENT [id number] red, swollen area with pus on left foot DARRIN MIRELES 11/22 Released w/o Limitations [employer] [place] ([facility])(S cott [facility] Fam Res Tm Red) [employer] [facility] ([facility])(Sco tt [facility] Fam Res Tm Green) OUTPATIENT [id number] school/ sports physica l / [id number] CHESTER MADDOX 09/28 Released w/o Limitations [address] [place] [address] Ian [facility]B [facility])(S cott [facility] Fam Res Tm Green) [address] [place] [address] [facility] [facility])(Sco tt [facility] FAMRES Tm Blue) OUTPATIENT [id number] 9 decreas ed appetit e, fatigue d YA NICOLE 08/30 Released w/o Limitations [address] [place] [address] Ian [facility]OBAR[facility])(S cott [facility] FAMRES Tm Blue) [address] [place] [address] Ian B [facility])(Sco tt [facility] FAMRES Tm Blue) TELE CONSULT [id number] 2 Notes Entered by: SRIDEVI HACKETT 30 Aug 2018 1639 ------- ------- ------- ------- -- F/U Labs and BHOP Referra ERNESTINE Mayo 08/30 Referred for Appointment [address] [place] [address] [facility]UL[facility])(S [facility] FAMRES Tm Blue) [address] [place] [address] [facility] OUTPATIENT [id number] 4 discuss energy and mood issues JAYLEN PERDUE 09/06 Released w/o Limitations [address] [place] [address] [facility]) [address] [place] [address] [facility])(Sco tt [facility] Fam Res Tm Green) OUTPATIENT [id number] 2 dizzy off and one for awhile CHESTER MADDOX 09/13 Released w/o Limitations [address] [place] [address] Ian [facility])(S cott [facility] Fam Res Tm Green) [address] [place] [address] [facility]OB[facility]) OUTPATIENT [id number] 4 f/u JAYLEN PERDUE 09/14 Released w/o Limitations [address] [place] [address] [facility])([facility]) [address] [place] [address] [facility])(Sco tt [facility] Fam Res Tm Green) TELE CONSULT [id number] Notes Entered by: Charles RAUSCH 04 Oct 2018 1222 ------- ------- ------- ------- -- Network results Cardiol ogy 019 CHESTER HOSKINS 10/04 Released to Self [facility] [address] [place] [address] [facility]S [facility] Res Tm Green) [address] [place] [address] [facility])(Sco tt [facility] Fam Res Tm Green) TELE CONSULT [id number] 1 Notes Entered by: STEVEN BARRAZA 08 Aug 2019 1024 ------- ------- ------- ------- -- referra l request /rosario corneliuson/[phone] ERNESTINE Viramontes 08/07 Released to Self Care [address] [place] [address] [facility])(S [facility] Res Tm Green) [address] [place] [address] [facility])(Sco tt [facility] Res Green) TELE CONSULT [id number] 2 Notes Entered by: BENTLEY MARIEE 16 Nov 2019 0950 ------- ------- ------- ------- -- F/u after special ist - Referra nae Request /Gregory ba/[phone] EARNEST BAUTISTA 11/15 Referred for Appointment [address] [place] [address] [facility])(S [facility] Res Tm Green) [address] [place] [address] [facility])(Sco tt [facility] Res Tm Green) OUTPATIENT [id number] VIRTUAL /Depres juan/an xiety follow- up / OSCAR BOSTON 11/16 Released w/o Limitations [address] [place] [address] [facility])(S [facility] Fam Res Tm Green) [address] [place] [address] [facility])(Sco tt [facility] Res Tm Green) OUTPATIENT [id number] 0 F2F - School Physicliseth l JANE THURMAN 08/08 Released w/o Limitations [address] [place] [address] [facility])(S [facility] Res Tm Green) Procedures Combined list of: 1) Procedures from Department of Veterans Affairs facilities going back up to thelast 18 months, not all VA non-surgical procedures are included; 2) All procedures from the Department of Defense facilities. Procedure Procedure Type Code Date Perfomer Comments Sourc e No data available for this section Ambulato ry Pharmacy ECG 12-Lead With Interpretation And Report ECG 12-Lead With Interpretation And Report [id number] 09/16/19 19 CHESTER MADDOX [facility] Psychometric Emotional / Behavioral A e ment Psychometric Emotional / Behavioral Assessment 21273 09/10/19 19 JAYLEN PERDUE Health And Behav A e mt Each 15 Min Initial A e ment Health And Behav Assessmt Each 15 Min Initial Assessment 74254 09/10/19 19 JAYLEN PERDUE Non-Physician Phone Call To Patient/Provider Brief (5-10min) Non-Physician Phone Call To Patient/Provider Brief (5-10min) 05659 09/04/19 19 ERNESTINE PERKINS [facility] Tdap Vaccine Tdap Vaccine 78947 08/25/19 15 NATHALIE ROSE [facility] Immuniz Admin Age 18 Or Younger, W/ Radio Mechanic Helper, Each Additional Vaccine Component Immuniz Admin Age 18 Or Younger, W/ Radio Mechanic Helper, Each Additional Vaccine Component 86747 08/25/19 15 NATHALIE ROSE [facility] Meningococcal Conjugate Vaccine Quadrivalent Serogroups A, C, Y, W-135 08/25/19 15 NATHALIE ROSE [facility] Immuniz Admin Age 18 Or Younger, With Counseling, First / Only Vaccine Component Immuniz Admin Age 18 Or Younger, With Counseling, First / Only Vaccine Component 27747 08/25/19 15 NATHALIE ROSE [facility] Screening Test Of Visual Acuity, Quantitative, Bilateral Screening Test Of Visual Acuity, Quantitative, Bilateral 25308 08/01/19 15 MICHELLE WEBER [facility] Screening Test Of Visual Acuity, Quantitative, Bilateral Screening Test Of Visual Acuity, Quantitative, Bilateral 35693 10/14/19 13 JOSE DEVLIN [facility] Cerumen Removal Right Ear Curette Incomplete 09/13/19 11 CLAUDIA CHENG [facility] Cerumen Removal Left Ear Curette Incomplete 09/13/19 11 CLAUDIA CHENG [facility] Screening Test Of Visual Acuity, Quantitative, Bilateral Screening Test Of Visual Acuity, Quantitative, Bilateral 51396 11/06/19 10 NICOL FRANCIS(SAMMY) [facility] DTaP Vaccine DTaP Vaccine 79150 12/05/19 05 NESTOR RITTER [facility] Hemophil Influenzae B Vaccine HbOC Conjugate (4 Dose Schedule) For Intramuscular Use Hemophil Influenzae B Vaccine HbOC Conjugate (4 Dose Schedule) For Intramuscular Use 83648 12/05/19 05 NESTOR RITTER [facility] Physician Supervised Injection Intramuscular Antibiotic Physician Supervised Injection Intramuscular Antibiotic [id number] 11/12/19 05 HARI SANABRIA [facility] Pulse Oximetry Pulse Oximetry 97751 10/03/19 05 NATO TREVIÑO [facility] Vaccines Viral Measles, Mumps and Rubella, Live Vaccines Viral Measles, Mumps and Rubella, Live [id number] 07/25/19 05 OSCAR PRINCE [facility] Vaccines Viral Varicella (Active) Vaccines Viral Varicella (Active) 70302 07/25/19 05 OSCAR PRINCE [facility] DTaP Vaccine DTaP Vaccine 37652 07/25/19 05 OSCAR PRINCE [facility] Health And Behavior Intervention, Each Additional 15 Minutes Individual Health And Behavior Intervention, Each Additional 15 Minutes Individual [id number] JAYLEN PERDUE [facility] Psychometric Emotional / Behavioral A e ment Psychometric Emotional / Behavioral Assessment [id number] JAYLEN PERDUE [facility] Non-Physician Phone Call To Patient/Provider Brief (5-10min) Non-Physician Phone Call To Patient/Provider Brief (5-10min) [id number] ERNESTINE PERKINS DoD Waiver services; not otherwise specified (NOS) OSCAR BOSTON [facility] REMOVAL IMPACTED CERUMEN REQUIRING INSTRUMENTATION, UNILATERAL 09/13/19 11 [facility] TETANUS, DIPHTHERIA TOXOIDS AND ACELLULAR PERTUSSIS VACCINE (TDAP), WHEN ADMINISTERED TO INDIVIDUALS 7 YEARS OR OLDER, FOR INTRAMUSCULAR USE 08/24/19 15 [facility] SCREENING TEST OF VISUAL ACUITY, QUANTITATIVE, BILATERAL 08/04/19 15 [facility] SCREENING TEST OF VISUAL ACUITY, QUANTITATIVE, BILATERAL 10/14/19 13 [facility] SCREENING TEST OF VISUAL ACUITY, QUANTITATIVE, BILATERAL 11/06/19 10 DoD WAIVER SERVICES; NOT OTHERWISE SPECIFIED (NOS) 11/17/19 20 [facility] TELE ASSESS & MGT SRV PROV QUAL NONPHYS HLTH CARE PRO TO EST PAT,PARENT,GUARD NOT ORIG REL ASSESS & MGT SRV PROV W/IN PREV 7 DAYS NOR LEAD ASSESS & MGT SRV/PX W/IN NXT 24 HR/SOON APT;5-10 MIN MED DIS 11/16/19 DoD TELE ASSESS & MGT SRV PROV QUAL NONPHYS HLTH CARE PRO TO EST PAT,PARENT,GUARD NOT ORIG REL ASSESS & MGT SRV PROV W/IN PREV 7 DAYS NOR LEAD ASSESS & MGT SRV/PX W/IN NXT 24 HR/SOON APT;5-10 MIN MED DIS 08/08/19 [facility] BRIEF EMOTIONAL/BEHAVIOR AL ASSESSMENT (EG, DEPRESSION INVENTORY, ATTENTION-DEFICIT/ HYPERACTIVITY DISORDER [ADHD] SCALE), WITH SCORING AND DOCUMENTATION, PER STANDARDIZED INSTRUMENT 09/15/19 [facility] ELECTROCARDIOGRAM, ROUTINE ECG WITH AT LEAST 12 LEADS; WITH INTERPRETATION AND REPORT 09/15/19 [facility] BRIEF EMOTIONAL/BEHAVIOR AL ASSESSMENT (EG, DEPRESSION INVENTORY, ATTENTION-DEFICIT/ HYPERACTIVITY DISORDER [ADHD] SCALE), WITH SCORING AND DOCUMENTATION, PER STANDARDIZED INSTRUMENT 09/07/19 Do[facility] TELE ASSESS & MGT SRV PROV QUAL NONPHYS HLTH CARE PRO TO EST PAT,PARENT,GUARD NOT ORIG REL ASSESS & MGT SRV PROV W/IN PREV 7 DAYS NOR LEAD ASSESS & MGT SRV/PX W/IN NXT 24 HR/SOON APT;5-10 MIN MED DIS 08/31/19 [facility] SIMPLE REPAIR OF SUPERFICIAL WOUNDS OF SCALP, NECK, AXILLAE, EXTERNAL GENITALIA, TRUNK AND/OR EXTREMITIES (INCLUDING HANDS AND FEET); 2.5 CM OR LESS 09/22/19 06 [facility] INTRAMUSCULAR INJECTION OF ANTIBIOTIC (SPECIFY) 11/12/19 05 [facility] NONINVASIVE EAR OR PULSE OXIMETRY FOR OXYGEN SATURATION; SINGLE DETERMINATION 10/03/19 05 [facility] INJECTION, CEFTRIAXONE SODIUM, PER 250 MG 09/08/19 05 [facility] PREDNISOLONE ORAL, PER 5 MG 09/07/19 05 [facility] DIPHTHERIA, TETANUS TOXOIDS, AND ACELLULAR PERTUSSIS VACCINE (DTAP), WHEN ADMINISTERED TO INDIVIDUALS YOUNGER THAN 7 YEARS, FOR INTRAMUSCULAR USE 07/25/19 05 [facility] INFUSION, NORMAL SALINE SOLUTION, 250 CC 02/22/19 05 [facility] INFLUENZA VIRUS VACCINE, TRIVALENT (IIV3), SPLIT VIRUS, PRESERVATIVE FREE, 0.25 ML DOSAGE, FOR INTRAMUSCULAR USE 01/24/20 04 [facility] PNEUMOCOCCAL CONJUGATE VACCINE, 7 VALENT, FOR INTRAMUSCULAR USE 12/11/19 04 [facility] PNEUMOCOCCAL CONJUGATE VACCINE, POLYVALENT, INTRAMUSCULAR, FOR CHILDREN FROM FIVE YEARS TO NINE YEARS OF AGE WHO HAVE NOT PREVIOUSLY RECEIVED THE VACCINE 08 [facility] Social History Combined list of available smoking, tobacco, and other social history from [facility] facilities. Social History Type Response Date Comment Sourc e This section is an empty social history section. DoD Assessment and Plan Combined list of future care activities from [facility] and [facility] facilities (e.g., assessment and plan notes, appointments, orders, and referrals). Additional future care activities may be listed in the Plan of Care section. Result Assessment and Plan Date Source Assessment and Plan No data available for this section 02/13/2024 [facility] Functional Status Combined list of recent functional and cognitive assessments recorded at [facility] Functional [place] Measurement (FIM) Scale: 1 = Total Assistance (Subject = 0% +), 2 = Maximal Assistance (Subject = 25% +), 3 = Moderate Assistance (Subject = 50% +), 4 = Minimal Assistance (Subject = 75% +), 5 = Supervision, 6 = Modified [place] (Device), 7 = Complete [place] (Timely, Safely). Assessment Date/Time Source Assessment Type Assessment Skill Assessment Score Assessment Details No data available for this section
--- OUTSIDE RECORDS SUMMARY | 2024-02-13 17:16 | XMS_ITS | Continuity of Care Document ---
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 It does not include entries that were removed or entered in error. Problem Status Onset Date Problem Type Date of Resolution Comments Source visit for: administrative purpose Inactive Condition DoD visit for: screening exam lipoid disorders Inactive Condition DoD visit for: screening for heavy metal poisoning Inactive Condition [facility] visit for: screening exam iron deficiency anemia Inactive Condition [facility] Outpatient Physician Consultation Inactive Condition DoD strabismus Active Condition DoD upper respiratory infection Inactive Condition DoD cerumen impaction - both ears Inactive Condition DoD dehydration (Na, H2O) Inactive Condition DoD conjunctivitis Active Condition DoD otitis media Active Condition DoD molluscum contagiosum Active Condition [facility] Preventive Medicine New Patient Evaluation Childhood 5-11 [...] rash; mother has tried a variety of qyxv-vud-ibsckmp remedies with no success. Will Rx nystatin [...] is chicken pox, reviewed this illness with [facility] skin: rash [as Sx] Inactive Condition W Frederic FLORES [id number]@1330 ACUT$/15 PENDING DoD Need For Vaccination Against [...] INHALATION, TEVA [place], 8.5 g CANISTER Active [id number] 4 2023 8.5 Pharmac y Data Transac tion Service Facilit y BUSPIRONE HCL (buspirone HCl), 5 MG, TABLET, ORAL, UNICHEM PHARMAC, 100 ea. BOTTLE Cancele d [id number] : 2023 0 Pharmac y Data Transac tion Service Facilit y BUSPIRONE HCL (BUSPIRONE HCL), 5MG, TABLET, ORAL, TEVA [place], 100 ea. BOTTLE Cancele d [id number] : 2023 0 Pharmac y Data Transac tion Service Facilit y FLUOXETINE HCL (FLUOXETINE HCL), 20MG, CAPSULE, ORAL, PLIVA, INC, 1000 ea. BOTTLE Cancele d [id number] : 2023 0 Pharmac y Data Transac tion Service Facilit y FLUOXETINE HCL (FLUOXETINE HCL), 20MG, CAPSULE, ORAL, PLIVA, INC, 1000 ea. BOTTLE Active [id number] 4 2023 90 Pharmac y Data Transac tion Service Facilit y Allergies, Adverse Reactions, Alerts Combined list of allergies from Department of Defense and Veterans Affairs facilities. It does not include entries that were removed or entered in error. Substance Category Reaction Severity Reaction type Status Date Reported Comments Source NO OUTPUT FOR NCID [id number] Drug allergy (disorder) active 10/09/2006 DoD Immunizations Combined list of available immunizations from the Department of Defense and Veterans Affairs facilities. 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 Status Comments Source meningococcal oligosacchari de (MCV4O) 2020 [facility] Arm [id number] 136 GlaxoSmithKli ne complet ed meningoco ccal oligosacc haride (MCV4O) 08/09/20 Given Ambulat ory Pharmac y Human Papillomaviru s 9-valent vaccine 2020 [facility] Arm [id number] Merck & Company Inc complet ed Human Papilloma virus 9-valent vaccine 08/09/20 Given Ambulat ory Pharmac y Human Papillomaviru s 9-valent vaccine 2020 [id number] 165 Merck & Company Inc complet ed Human Papilloma virus 9-valent vaccine 08/09/20 Given Ambulat ory Pharmac y meningococcal oligosacchari de (MCV4O) 2020 [id number] 136 GlaxoSmithKli ne complet ed meningoco ccal oligosacc haride (MCV4O) 08/09/20 Given Ambulat ory Pharmac y meningococcal oligosacchari de (groups A, C, Y and W-135) diphtheria toxoid conjugate vaccine (MCV4O) 1 2020 Unknown, Provider [id number] 136 [employer]line (SKB) complet ed meningoco ccal oligosacc haride (groups A, C, Y and W-135) diphtheri a toxoid conjugate vaccine (MCV4O) DoD Human Papillomaviru s 9-valent vaccine 1 2020 Unknown, Provider [id number] 165 Merck (MSD) complet ed Human Papilloma virus 9-valent vaccine DoD influenza, live, intranasal,qu adrivalent 2015 [id number] 149 Medimmune Inc comple t ed influenza , live, intranasa l,quadriv alent 03/23/15 Given Ambulat ory Pharmac y influenza, live, intranasal,qu adrivalent 2015 [id number] 149 Medimmune Inc comple t ed influenza , live, intranasa l,quadriv alent 03/23/15 Given Ambulat ory Pharmac y influenza, live, intranasal, quadrivalent 1 2015 Unknown, Provider [id number] 149 [employer]. (MED) complet ed influenza , live, intranasa l, quadrival ent DoD tetanus, diphtheria, acellular pertu is 2014 Juan Alberto Arm [id number] 115 GlaxoSmithKli nv complet ed tetanus, diphtheri a, acellular pertussis 08/23/14 Given Ambulat ory Pharmac y meningococcal C conjugate vaccine 2014 Mark ribeiro Arm [id number] 103 sanofi pasteur complet ed meningoco ccal [...] C conjugate vaccine 1 2014 NATHALIE ROSE [id number] Sanofi Pasteur (PMC) complet ed meningoco [...] vaccine, adsorbed 1 2014 NATHALIE ROSE [id number] [address] [place] [address] (SKB) complet ed tetanus toxoid, reduced diphtheri a toxoid, and acellular pertussis vaccine, adsorbed DoD tuberculin purified protein derivative 2008 zzRig ht Arm [id number] 96 Unknown complet ed Patient Tolerance : Negative Ambulat ory Pharmac y tuberculin purified protein derivative 2008 TRANSCR IBED 96 complet ed tuberculi n purified protein derivativ e 10/24/08 Given Ambulat ory Pharmac y tuberculin skin test; purified protein derivative solution, intradermal 0 2008 JUAN ODONNELL [id number] 96 Other (OTH) complet ed tuberculi n [...] purified protein derivative 2008 zzLef t Arm [id number] 96 Unknown complet ed tuberculi n purified [...] derivative solution, intradermal 0 2008 Unknown, Provider [id number] Other (OTH) complet ed tuberculi n [...] influenza virus vaccine,split 2006 zzLef t Thigh [id number] 15 sanofi pasteur complet ed influenza virus [...] ory Pharmac y influenza virus vaccine,split 2006 [id number] 15 sanofi pasteur complet ed influenza virus vaccine,s plit 02/17/06 Given Ambulat ory Pharmac y influenza virus vaccine, split virus (incl. purified surface antigen)-reti red CODE 1 2006 Unknown, Provider [id number] 15 Sanofi Pasteur (PMC) complet ed influenza virus vaccine, split virus (incl. purified surface antigen)- retired CODE DoD hepatitis A vaccine, pediatric dosage, unspecified formulation 1 2006 Unknown, Provider [id number] 31 Sapiensine (SKB) complet ed hepatitis A vaccine, pediatric [...] Given Ambulat ory Pharmac y DTaP 2004 [id number] 20 GlaxoSmithKli ne complet ed DTaP [...] ory Pharmac y pneumococcal 7-valent vaccine 2004 [id number] 100 Makeblock complet ed pneumococ teresa 7-valent vaccine 07/24/04 [...] influenza virus vaccine,split 2004 zzLef t Thigh [id number] 15 sanofi pasteur complet ed influenza virus [...] and poliovirus vaccine 2004 zzLef t Thigh [id number] 0AA 110 GlaxoSmithKli ne complet ed DTaP-hepa titis B and polioviru s vaccine 03/12/04 Given Ambulat ory Pharmac y DTaP-hepatiti s B and poliovirus vaccine 2004 [id number] 0AA 110 GlaxoSmithKli ne complet ed DTaP-hepa titis B and polioviru s vaccine 03/12/04 Given Ambulat ory Pharmac y pneumococcal 7-valent vaccine 2004 [id number] 100 [employer] complet ed pneumococ teresa 7-valent vaccine 03/12/04 Given Ambulat ory Pharmac y DTaP-hepatiti s B and poliovirus vaccine 2004 [id number] 0AA 110 GlaxoSmithKli ne complet ed DTaP-hepa titis B and polioviru s vaccine 03/12/04 Given Ambulat ory Pharmac y DTaP-hepatiti s B and poliovirus vaccine 2004 [id number] 0AA 110 GlaxoSmithKli ne complet ed DTaP-hepa titis B and polioviru s vaccine 03/12/04 Given Ambulat ory Pharmac y influenza virus vaccine,split 2004 [id number] 15 sanofi pasteur complet ed influenza virus [...] antigen)-reti red CODE 1 2004 Unknown, Provider [id number] 15 Sanofi Pasteur (PMC) complet ed influenza [...] and poliovirus vaccine 3 2004 Unknown, Provider [id number] 110 [employer] (SKB) complet ed DTaP-hepa titis B and polioviru s vaccine DoD influenza virus vaccine,split 2003 zzLef t Thigh [id number] 15 sanofi pasteur complet ed influenza virus vaccine,s plit 01/24/04 Given Ambulat ory Pharmac y influenza virus vaccine, unspecified 2003 Transcr ibed 88 complet ed influenza virus vaccine, unspecifi ed 01/24/04 Given Ambulat ory Pharmac y influenza virus vaccine,split 2003 [id number] 15 sanofi pasteur complet ed influenza virus vaccine,s plit 01/24/04 Given Ambulat ory Pharmac y influenza virus vaccine, split virus (incl. purified surface antigen)-reti red CODE 1 2003 Unknown, Provider [id number] 15 Sanofi Pasteur (PMC) complet ed influenza [...] and poliovirus vaccine 2003 zzLef t Thigh [id number] 3ba 110 GlaxoSmithKli ne complet ed DTaP-hepa [...] DTaP-hepatiti s B and poliovirus vaccine 2003 [id number] 3ba 110 GlaxoSmithKli ne complet ed DTaP-hepa titis B and polioviru s vaccine 03 Given Ambulat ory Pharmac y haemophilus b conj (PRP-OMP) vaccine 2003 [id number] 49 Merck & Xipin complet ed haemophil us b conj (PRP-OMP) vaccine 03 Given Ambulat ory Pharmac y pneumococcal 7-valent vaccine 2003 [id number] 100 Makeblock complet ed pneumococ teresa 7-valent vaccine 03 Given Ambulat ory Pharmac y DTaP-hepatiti s B and poliovirus vaccine 2003 [id number] 3ba 110 GlaxoSmithKli ne complet ed DTaP-hepa titis B and polioviru s vaccine 03 Given Ambulat ory Pharmac y DTaP-hepatiti s B and poliovirus vaccine 2003 [id number] 3ba 110 GlaxoSmithKli ne complet ed DTaP-hepa [...] and poliovirus vaccine 2 2003 Unknown, Provider [id number] 3ba 110 [facility] (SKB) complet ed DTaP-hepa titis B and polioviru s vaccine DoD haemophilus b conj (PRP-OMP) vaccine 2003 zzRig ht Thigh [id number] 49 Merck & Company Inc complet ed haemophil us b conj (PRP-OMP) vaccine 03 Given Ambulat ory Pharmac y DTaP-hepatiti s B and poliovirus vaccine 2003 zzLef t Thigh [id number] 110 GlaxoSmithKli ne complet ed DTaP-hepa titis [...] DTaP-hepatiti s B and poliovirus vaccine 2003 [id number] 110 GlaxoSmithKli ne complet ed DTaP-hepa titis B and polioviru s vaccine 03 Given Ambulat ory Pharmac y pneumococcal 7-valent vaccine 2003 [id number] 100 [employer] complet ed pneumococ teresa 7-valent vaccine 03 Given Ambulat ory Pharmac y DTaP-hepatiti s B and poliovirus vaccine 2003 [id number] 110 GlaxoSmithKli ne complet ed DTaP-hepa titis B and polioviru s vaccine 03 Given Ambulat ory Pharmac y DTaP-hepatiti s B and poliovirus vaccine 2003 [id number] 110 GlaxoSmithKli ne complet ed DTaP-hepa titis [...] B and poliovirus vaccine 2003 Unknown, Provider [id number] 110 SmithKline (SKB) complet ed DTaP-hepa titis [...] ADM Date DC Date Status Disposition Source [address] [place] [address] [employer] ([facility]Ped iatrics) OUTPATIENT [id number] 12 mo OSCAR PRINCE 07/24 Released w/o Limitations [address] [place] [address] [employer] ([facility])(P ediatri cs) [address] [place] [address] [employer] ([facility])(Ped iatrics) OUTPATIENT [id number] er f/u fever OSCAR PRINCE 09/09 Released w/o Limitations [address] [place] [address] [employer] ([facility])(P ediatri cs) [address] [place] [address] [employer] ([facility])(Ped iatrics) OUTPATIENT [id number] pink eye OSCAR PRINCE 09/26 Released w/o Limitations [address] [place] [address] [employer] ([facility])(P ediatri cs) [address] [place] [address] [employer] ([facility])(Ped iatrics) OUTPATIENT [id number] pink eye NATO TREVIÑO 10/02 Released w/o Limitations [address] [place] [address] [employer] ([facility])(P ediatri cs) [address] [place] [address] [employer] ([facility])(Ped iatrics) TELE CONSULT [id number] 1yo pt with severe congest ion x 2 wks/no fever JASON CAMPBELL 10/[address] [place] [address] [employer] ([facility])(P ediatri cs) [address] [place] [address] [employer] ([facility])(Ped iatrics) OUTPATIENT [id number] congest ion >1 week, getting worse HARI SANABRIA 10/23 Released w/o Limitations [address] [place] [address] [employer] ([facility])(P ediatri cs) [address] [place] [address] [employer] ([facility])(Ped iatrics) TELE CONSULT [id number] Spilled some medicin e/HARI Mariano 10/[address] [place] [address] [employer] ([facility])(P ediatri cs) [address] [place] [address] [employer] ([facility])(Ped iatrics) OUTPATIENT [id number] congest ion/hx pneumon ia HARI SANABRIA 11/11 Released w/o Limitations [address] [place] [address] [employer] ([facility])(P ediatri cs) [facility] [employer] ([facility])(Ped iatrics) TELE CONSULT [id number] yeast infecti on KLAUS WOODS 11/13 [employer] ([facility])(P ediatri cs) [address] [place] [address] [employer] ([facility])(Ped iatrics) TELE CONSULT [id number] Lino albrecht about meds for yeast infecti on/ KLAUS Talley 11/19 [facility] [employer] ([facility])(P ediatri cs) [facility] [employer] ([facility])(Ped iatrics) OUTPATIENT [id number] poss ear infecti on LUC PATEL 12/04 Released w/o Limitations [employer] ([facility])(P ediatri cs) [address] [place] [address] [employer] ([facility])(Ped iatrics) OUTPATIENT [id number] immuniz ation NESTOR RITTER. 12/04 Released w/o Limitations [employer] ([facility])(P ediatri cs) [address] [place] [address] [employer] ([facility])(Ped iatrics) TELE CONSULT [id number] Would like a call back/ MAC Coleman 12/20 [facility] [employer] ([facility])(P ediatri cs) [address] [place] [address] [employer] ([facility])(Ped iatrics) OUTPATIENT [id number] immuniz ation (copy) DONA CRUZ 01/22 Released w/o Limitations [employer] ([facility])(P ediatri cs) [facility] [employer] ([facility])(Ped iatrics) TELE CONSULT [id number] patient with bacteri al rash?? KLAUS WOODS 01/29 [employer] ([facility])(P ediatri cs) [facility] [employer] ([facility])(Ped iatrics) OUTPATIENT [id number] rash on face and private area/ne eds to be screene d for chicken pox first PIOTR BURNETT 01/29 Released w/o Limitations [employer] ([facility])(P ediatri cs) [facility] [employer] ([facility])(Ped iatrics) TELE CONSULT [id number] cold x 24 hrs JASON GARCIA J 03/13 [facility] [employer] ([facility])(P ediatri cs) [facility] [employer] ([facility])(Ped iatrics) TELE CONSULT [id number] needs advice KLAUS WOODS 04/[address] [place] [address] [employer] ([facility])(P ediatri cs) [facility] [employer] ([facility])(Ped iatrics) TELE CONSULT [id number] - after hrs phone interac LUC Ortega 07/04 [facility] [employer] ([facility])(P ediatri cs) [facility] [employer] ([facility])(Ped iatrics) OUTPATIENT [id number] 1 year well HARI SANABRIA 07/15 Released w/o Limitations [address] [place] [address] [employer] ([facility])(P ediatri cs) [facility] [employer] ([facility])(Ped iatrics) TELE CONSULT [id number] diaper rash JASON GARCIA 07/[address] [place] [address] [employer] ([facility])(P ediatri cs) [facility] [employer] ([facility])(Ped iatrics) OUTPATIENT [id number] diaper rash HARI SANABRIA 07/29 Released w/o Limitations [facility] [employer] ([facility])(P ediatri cs) [facility] [employer] ([facility])(Sco tt [facility] Fam Res Tm Green) OUTPATIENT [id number] JANE Nagel 01/06 Released w/o Limitations [facility] [employer] ([facility])(S cott [facility] [place] [employer] ([facility])(Sco tt [facility] FAMRES Tm Blue) OUTPATIENT [id number] ear infecti on DONTAE URBINA 02/17 Released w/o Limitations [facility] [employer] ([facility]S cott [facility] FAM[facility]m Blue[place] [facility] [employer] ([facility])(Sco tt [facility] FAMRES Tm Blue[facility] OUTPATIENT [id number] referra l [facility] LEANDRO Zhu 03/26 Released w/o Limitations [employer] ([facility])(S cott [facility] FAMRES Tm Blue) [employer] ([facility])(Sco tt [facility] Fam Res Tm Green) OUTPATIENT [id number] 3Y FE Blood in Stool C/O Diarrhe a H#[phone] ADRIANO STEARNS 07/24 Released w/o Limitations [employer] ([facility])(S cott [facility] Fam Res Tm Green) [address] [place] [address] [employer] LUZFrederic ([facility])(Sco tt [facility] FAMRES Tm Blue) OUTPATIENT [id number] constip DONTAE [place] 08/11 Released w/o Limitations [facility] [employer] ([facility])(S cott [facility] FAM[facility] Tm Blue) [address] [place] [address] [employer] ([facility])(Sco tt [facility] FAMRES Tm Blue) OUTPATIENT [id number] 3Y Wellnes s Exam H# LEANDRO NGO 10/12 Released w/o Limitations [address] [place] [address] Group [employer] LUZFrederic ([facility])(S [facility] FAMRES Tm Blue) [place] [facility] [place] OUTPATIENT [id number] [facility] physica l SERVICEALCIDES 10/11 [place]ased w/o Limitations [place] [place] [facility] OUTPATIENT [id number] [facility] 07/13 [place]ased w/o Limitations [place] [place]) [place] [facility]) OUTPATIENT [id number] pink eye NICOL FRANCIS([place]) 11/05 Released w/o Limitations [place]([facility] Pract[facility] - [place]) [facility] [place] OUTPATIENT [id number] fever/v omiting CLAUDIA CHENG 09/12 Released w/o Limitations [facility] [place] [facility] [place] TELE CONSULT [id number] iv fluids BASILIA JURADO 09/13 [facility]( [facility] [place] [facility]) [facility] Team 1) OUTPATIENT [id number] fever,c ongesti on sore throat JANICE ELLIOTTSARMAD Aragon 04/06 Released w/o Limitations [facility]( [facility] Team 1) [facility] [place]) TELE CONSULT [id number] Notes Entered by: Evan NICHOLS 25 May 2012 1138 ------- ------- ------- ------- -- Request for Referra l. ANTHONY NICHOLS 05/25 [facility] [place] [facility] [place] TELE CONSULT [id number] Notes Entered by: Evan NICHOLS 09 Jun 2012 1514 ------- ------- ------- ------- -- Referra l Request ANTHONY NICHOLS 06/09 [facility]( [facility] [place] [place]) TELE CONSULT [id number] Notes Entered by: Ramírez PERKINS 26 Jul 2012 1526 ------- ------- ------- ------- -- CLR: JOHNY KASPER / Karl Young MD - DOS: 013 ANTHONY NICHOLS 07/26 [facility]( [facility] [place] [facility] [place] T[facility]) OUTPATIENT [id number] 7 year well; school physica l JOSE DEVLIN 10/13 Released w/o Limitations [facility](P [place] T1) [facility](Immuniz ation [place]) OUTPATIENT [id number] Notes Entered by: SHWETHA KEENE 13 Oct 2012 1152 ------- ------- ------- ------- -- Transcr iptMERCY Mccormack 10/13 Released w/o Limitations [facility](Imm unizati on [place]) [facility](P [place] T2) OUTPATIENT [id number] FEVER AND SORE THROAT X1DAY RAMO AYOUB Bandar 07/14 Released w/o Limitations [facility](MHP [place] T2) [facility] h(P [place] T2) OUTPATIENT [id number] annual check-u p MICHELLE WEBER 07/31 Released w/o Limitations [facility](P [place] T2) [facility] h(Immuniz ation [place]) OUTPATIENT [id number] Notes Entered by: NATHALIE SHAIKH 23 Aug 2014 1450 ------- ------- ------- ------- -- David Dyson SHAWN R 08/23 Released w/o Limitations [facility](Imm unizati on [place]) [facility](PMHP TPC VB T1) OUTPATIENT [id number] RASH ON FACE X 3 DAYS ALMA LUONG 12/23 Released w/o Limitations [facility](PMH P TPC VB T1) [employer] ([facility])(Sco tt [facility] Fam Res Tm Red) OUTPATIENT [id number] school physica l ASHLEY THOMPSON 03/15 Released w/o Limitations [employer] ([facility])(S cott [facility] Fam Res Tm Red) [employer] ([facility])(Sco tt [facility] Fam Res Tm Red) OUTPATIENT [id number] red, swollen area with pus on left foot DARRIN MIRELES 11/22 Released w/o Limitations [employer] [place] ([facility])(S cott [facility] Fam Res Tm Red) [employer] ([facility])(Sco tt [facility] Fam Res Tm Green) OUTPATIENT [id number] school/ sports physica l / [id number] [place] MADDOX 09/28 Released w/o Limitations [address] [place] [address] Ian [facility] [facility] [place] [address] [place] [address] Ian [facility]Sco [place] [facility] [place] OUTPATIENT [id number] decreas ed appetit e, fatigue d YA NICOLE 08/30 Released w/o Limitations [address] [place] [address] Ian [facility]S cott [facility] [place] [address] [place] [address] Ian B [facility]Sco tt [facility] [place] TELE CONSULT [id number] Notes Entered by: SRIDEVI HACKETT 30 Aug 2018 1639 ------- ------- ------- ------- -- F/U Labs and BHOP Referra ERNESTINE Mayo 08/30 Referred for Appointment [address] [place] [address] Ian [facility])(S [facility] FAMRES Tm Blue) [address] [place] [address] [facility] OUTPATIENT [id number] discuss energy and mood issues JAYLEN PERDUE 09/06 Released w/o Limitations [address] [place] [address] [facility]) [address] [place] [address] Ian [facility])(Sco tt [facility] [place] OUTPATIENT [id number] dizzy off and one for awhile CHESTER MADDOX 09/13 Released w/o Limitations [address] [place] [address] Ian [facility]S cott [facility] [address] [place] [address] Ian [facility]) OUTPATIENT [id number] f/u JAYLEN PERDUE 09/14 Released w/o Limitations [address] [place] [address] Ian [facility]O [facility]) [address] [place] [address] Ian [facility]Sco tt [facility] [place] TELE CONSULT [id number] Notes Entered by: Charles RAUSCH 04 Oct 2018 1222 ------- ------- ------- ------- -- Network results Cardiol ogy 019 CHESTER HOSKINS 10/04 Released to Self Care [address] [place] [address] Ian [facility]S [facility] Res Tm Green) [address] [place] [address] Ian [facility])(Sco tt [facility] [place] TELE CONSULT [id number] Notes Entered by: STEVEN BARRAZA 08 Aug 2019 1024 ------- ------- ------- ------- -- referra l request /rosario corneliuson/[phone] ERNESTINE Viramontes 08/07 Released to Self Care [address] [place] [address] Ian [facility])(S [facility] Res Tm Green) [address] [place] [address] Ian [facility])(Sco tt [facility] Res Green) TELE CONSULT [id number] Notes Entered by: BENTLEY MARIEE 16 Nov 2019 0950 ------- ------- ------- ------- -- F/u after special ist - Referra nae Request /Gregory ba/[phone] EARNEST BAUTISTA 11/15 Referred for Appointment [address] [place] [address] Ian [facility])(S [facility] Res Tm Green) [address] [place] [address] Ian [facility])(Sco tt [facility] Res Tm Green) OUTPATIENT [id number] VIRTUAL /Depres juan/an xiety follow- up / OSCAR BOSTON 11/16 Released w/o Limitations [address] [place] [address] Ian [facility])(S [facility] Fam Res Tm Green) [address] [place] [address] Ian [facility])(Sco tt [facility] Res Tm Green) OUTPATIENT [id number] F2F - School Physicliseth l JANE THURMAN 08/08 Released w/o Limitations [address] [place] [address] Ian [facility])(S [facility] Res Tm Green) Procedures Combined list of: [...] Report ECG 12-Lead With Interpretation And Report [id number] 09/16/19 19 CHESTER MADDOX [facility] Psychometric Emotional / Behavioral A e ment Psychometric Emotional / Behavioral Assessment 03517 09/10/19 19 JAYLEN PERDUE Health And Behav A e mt Each 15 Min Initial A e ment Health And Behav Assessmt Each 15 Min Initial Assessment 23839 09/10/19 19 JAYLEN PERDUE Non-Physician Phone Call To Patient/Provider Brief (5-10min) Non-Physician Phone Call To Patient/Provider Brief (5-10min) [id number] 09/04/19 19 ERNESTINE PERKINS [facility] Tdap Vaccine Tdap Vaccine 72112 08/25/19 15 NATHALIE ROSE [facility] Immuniz Admin Age 18 Or Younger, W/ Pulp Mill Supervisor, Each Additional Vaccine Component Immuniz Admin Age 18 Or Younger, W/ Pulp Mill Supervisor, Each Additional Vaccine Component 42162 08/25/19 15 NATHALIE ROSE [facility] Meningococcal Conjugate Vaccine Quadrivalent Serogroups A, C, Y, W-135 08/25/19 15 NATHALIE ROSE [facility] Immuniz Admin Age 18 Or Younger, With Counseling, First / Only Vaccine Component Immuniz Admin Age 18 Or Younger, With Counseling, First / Only Vaccine Component 09480 08/25/19 15 NATHALIE ROSE [facility] Screening Test Of Visual Acuity, Quantitative, Bilateral Screening Test Of Visual Acuity, Quantitative, Bilateral 85675 08/01/19 15 MICHELLE WEBER [facility] Screening Test Of Visual Acuity, Quantitative, Bilateral Screening Test Of Visual Acuity, Quantitative, Bilateral 33643 10/14/19 13 JOSE DEVLIN [facility] Cerumen Removal Right Ear Curette Incomplete 09/13/19 11 CLAUDIA CHENG [facility] Cerumen Removal Left Ear Curette Incomplete 09/13/19 11 CLAUDIA CHENG [facility] Screening Test Of Visual Acuity, Quantitative, Bilateral Screening Test Of Visual Acuity, Quantitative, Bilateral 30683 11/06/19 10 NICOL FRANCIS(SAMMY) [facility] DTaP Vaccine DTaP Vaccine 88752 12/05/19 05 NESTOR RITTER [facility] Hemophil Influenzae B Vaccine HbOC Conjugate (4 Dose Schedule) For Intramuscular Use Hemophil Influenzae B Vaccine HbOC Conjugate (4 Dose Schedule) For Intramuscular Use 85146 12/05/19 05 NESTOR RITTER [facility] Physician Supervised Injection Intramuscular Antibiotic Physician Supervised Injection Intramuscular Antibiotic 71945 11/12/19 05 HARI SANABRIA [facility] Pulse Oximetry Pulse Oximetry 72701 10/03/19 05 NATO TREVIÑO [facility] Vaccines Viral Measles, Mumps and Rubella, Live Vaccines Viral Measles, Mumps and Rubella, Live 13272 07/25/19 05 OSCAR PRINCE [facility] Vaccines Viral Varicella (Active) Vaccines Viral Varicella (Active) 38331 07/25/19 05 OSCAR PRINCE [facility] DTaP Vaccine DTaP Vaccine 52612 07/25/19 05 OSCAR PRINCE [facility] Health And Behavior Intervention, Each Additional 15 Minutes Individual Health And Behavior Intervention, Each Additional 15 Minutes Individual 74236 JAYLEN PERDUE [facility] Psychometric Emotional / Behavioral A e ment Psychometric Emotional / Behavioral Assessment 60042 JAYLEN PERDUE [facility] Non-Physician Phone Call To Patient/Provider Brief (5-10min) Non-Physician Phone Call To Patient/Provider Brief (5-10min) 78074 ERNESTINE PERKINS DoD Waiver services; not otherwise specified (NOS) OSCAR BOSTON [facility] REMOVAL IMPACTED CERUMEN REQUIRING INSTRUMENTATION, UNILATERAL 09/13/19 11 [facility] TETANUS, DIPHTHERIA TOXOIDS AND ACELLULAR PERTUSSIS VACCINE (TDAP), WHEN ADMINISTERED TO INDIVIDUALS 7 YEARS OR OLDER, FOR INTRAMUSCULAR USE 08/24/19 15 [facility] SCREENING TEST OF VISUAL ACUITY, QUANTITATIVE, BILATERAL 08/04/19 15 [facility] SCREENING TEST OF VISUAL ACUITY, QUANTITATIVE, BILATERAL 10/14/19 13 [facility] SCREENING TEST OF VISUAL ACUITY, QUANTITATIVE, BILATERAL 11/06/19 10 DoD WAIVER SERVICES; NOT OTHERWISE SPECIFIED (NOS) 11/17/19 20 [facility] TELE ASSESS & MGT SRV PROV QUAL [...] 24 HR/SOON APT;5-10 MIN MED DIS 08/08/19 [facility] BRIEF EMOTIONAL/BEHAVIOR AL ASSESSMENT (EG, DEPRESSION INVENTORY, ATTENTION-DEFICIT/ HYPERACTIVITY DISORDER [ADHD] SCALE), WITH SCORING AND DOCUMENTATION, PER STANDARDIZED INSTRUMENT 09/15/19 [facility] ELECTROCARDIOGRAM, ROUTINE ECG WITH AT LEAST 12 LEADS; WITH INTERPRETATION AND REPORT 09/15/19 [facility] BRIEF EMOTIONAL/BEHAVIOR AL ASSESSMENT (EG, DEPRESSION INVENTORY, [...] FEET); 2.5 CM OR LESS 09/22/19 06 [facility] INTRAMUSCULAR INJECTION OF ANTIBIOTIC (SPECIFY) 11/12/19 05 [facility] NONINVASIVE EAR OR PULSE OXIMETRY FOR OXYGEN SATURATION; SINGLE DETERMINATION 10/03/19 05 [facility] INJECTION, CEFTRIAXONE SODIUM, PER 250 MG 09/08/19 05 [facility] PREDNISOLONE ORAL, PER 5 MG 09/07/19 05 [facility] DIPHTHERIA, TETANUS TOXOIDS, AND ACELLULAR PERTUSSIS VACCINE (DTAP), WHEN ADMINISTERED TO INDIVIDUALS YOUNGER THAN 7 YEARS, FOR INTRAMUSCULAR USE 07/25/19 05 [facility] INFUSION, NORMAL SALINE SOLUTION, 250 CC 02/22/19 05 [facility] INFLUENZA VIRUS VACCINE, TRIVALENT (IIV3), SPLIT VIRUS, PRESERVATIVE FREE, 0.25 ML DOSAGE, FOR INTRAMUSCULAR USE 01/24/20 04 [facility] PNEUMOCOCCAL CONJUGATE VACCINE, 7 VALENT, FOR INTRAMUSCULAR USE 12/11/19 04 [facility] PNEUMOCOCCAL CONJUGATE VACCINE, POLYVALENT, INTRAMUSCULAR, FOR CHILDREN FROM FIVE YEARS TO NINE YEARS OF AGE WHO HAVE NOT PREVIOUSLY RECEIVED THE VACCINE 08 [facility] Social History Combined list of available smoking, [...] at [employer] [place] Functional [place] Measurement (FIM) Scale: 1 = Total Assistance (Subject = 0% +), 2 = Maximal Assistance (Subject = 25% +), 3 = Moderate Assistance (Subject = 50% +), 4 = Minimal Assistance (Subject = 75% +), 5 = Supervision, 6 = Modified [place] (Device), 7 = Complete [place] (Timely, Safely). Assessment Date/Time Source Assessment Type Assessment Skill Assessment Score Assessment Details No data available for this section
== END 2024-02-06 13:35 | disposition home or self-care (01) ==
PROVIDERS: Emergency Provider Nurse Practitioner Family
DX: R05.3 Chronic cough (principal)
CPT/HCPCS: 71046; 99213; G0463